=== PATIENT | male | born 1970 | race American Indian/Alaskan Native ===

== ENCOUNTER 2017-06-02 11:56 | Emergency (ER) | payer MEDICAID, OTHER ==
[2017-06-02] MEDS ORDERED: Clindamycin HCl 150 MG Cap PO ONE ×2 (11:57→12:54)
[2017-06-02] MEDS ORDERED: Clindamycin HCl 150 MG Cap ONE (13:16)
--- NOTE | 2017-06-02 14:43 | EDM.PDOC ---
Scribed by Clary Vega 06/02/17 1258 for Consuelo Coleman NP ED HPI GENERAL MEDICAL PROBLEM - General Chief Complaint: ENT Problem Stated Complaint: ABCESS TOOTH [id number] Time Seen by Provider: 06/02/17 12:35 Source of Information: Reports: Patient, RN, RN Notes Reviewed History Limitations: Reports: No Limitations - History of Present Illness INITIAL COMMENTS - FREE TEXT/NARRATIVE: Patient presents to ER with complaint of left facial pain and swelling beginning a couple of days ago. Swelling and pain constantly worsening. Onset: Gradual Duration: Getting Worse Location: Reports: Face Quality: Reports: Ache Severity: Moderate Improves with: Reports: None Worsens with: Reports: None Associated Symptoms: Reports: No Other Symptoms Upper Gums Pain Score (Numeric/FACES): 6 - Related Data Allergies Allergy/AdvReac Type Severity Reaction Status Date / Time erythromycin base Allergy Hives Verified 06/02/17 12:05 naproxen Allergy Hives Verified 06/02/17 12:05 Penicillins Allergy rash and Verified 06/02/17 12:05 swelling Home Meds: Home Meds ARIPiprazole [Abilify] 1 tab PO BEDTIME 06/02/17 [History] Cholecalciferol (Vitamin D3) [Vitamin D3] 2 tab PO DAILY 06/02/17 [History] Gabapentin [Neurontin] 200 mg PO BID 06/02/17 [History] Lisinopril 1 tab PO DAILY 06/02/17 [History] QUEtiapine Fumarate [Seroquel Xr] 1 tab PO BEDTIME 06/02/17 [History] metFORMIN HCl [Metformin HCl] 1 tab PO BID 06/02/17 [History] Past Medical History HEENT History: Reports: None Cardiovascular History: Reports: Hypertension Respiratory History: Reports: None Gastrointestinal History: Reports: Chronic Diarrhea, Hepatitis, Other (See Below ) Other Gastrointestinal History: hepatitis C Genitourinary History: Reports: None Musculoskeletal History: Reports: Arthritis, Back Pain, Chronic Neurological History: Reports: Concussion Psychiatric History: Reports: Anxiety, Mood Swings Endocrine/Metabolic History: Reports: Diabetes, Type II, Vitamin D Deficiency Hematologic History: Reports: None Immunologic History: Reports: None Oncologic (Cancer) History: Reports: None Dermatologic History: Reports: None - Past Surgical History HEENT Surgical History: Reports: None Cardiovascular Surgical History: Reports: None Respiratory Surgical History: Reports: None GI Surgical History: Reports: None Neurological Surgical History: Reports: None Musculoskeletal Surgical History: Reports: None, Hip Replacement Other Musculoskeletal Surgeries/Procedures:: Right hip replacement Social & Family History - Family History Family Medical History: Noncontributory - Tobacco Use Smoking Status *Q: Current Every Day Smoker Years of Tobacco use: 20 Packs/Tins Daily: 0.5 - Caffeine Use Caffeine Use: Reports: Tea - Recreational Drug Use Recreational Drug Use: No ED ROS ENT - Review of Systems Review Of Systems: ROS reveals no pertinent complaints other than HPI. ED EXAM, ENT - Physical Exam Exam: See Below Exam Limited By: No Limitations General Appearance: Alert, WD/WN, No Apparent Distress Eye Exam: Bilateral Eye: Normal Inspection Ears: Normal External Exam, Normal Canal, Hearing Grossly Normal, Normal TMs Nose: Normal Inspection, Normal Mucousa, No Blood Mouth/Throat: Normal Inspection, Normal Gums, Normal Lips, Normal Oropharynx, Normal Teeth Head: Facial Swelling (left) Neck: Normal Inspection, Supple, Non-Tender, Full Range of Motion Respiratory/Chest: No Respiratory Distress, Lungs Clear, Normal Breath Sounds, No Accessory Muscle Use, Chest Non-Tender Cardiovascular: Normal Peripheral Pulses, Regular Rate, Rhythm, No Edema, No Gallop, No JVD, No Murmur, No Rub GI/Abdominal: Normal Bowel Sounds, Soft, Non-Tender, No Organomegaly, No Distention, No Abnormal Bruit, No Mass (Male) Exam: Deferred Rectal (Males) Exam: Deferred Back: Normal Inspection, Full Range of Motion Extremities: Normal Inspection, Normal Range of Motion, Non-Tender, No Pedal Edema, Normal Capillary Refill Neurological: Alert, Oriented, CN II-XII Intact, Normal Cognition, Normal Gait, Normal Reflexes, No Motor/Sensory Deficits Psychiatric: Flat Affect Skin: Warm, Dry, Intact, Normal Color, No Rash Lymphatic: No Adenopathy Course - Vital Signs Last Recorded V/S: Last Vital Signs Temp 98.2 F 06/02/17 12:02 Pulse 88 06/02/17 12:02 Resp 16 06/02/17 12:02 BP 114/71 06/02/17 12:02 Pulse Ox 100 06/02/17 12:02 - Orders/Labs/Meds Meds: Medications Discontinued Medications Generic Name Dose Route Start Last Admin Trade Name Freq PRN Reason Stop Dose Admin Clindamycin HCl 600 mg 06/02/17 12:54 Cleocin PO 06/02/17 12:55 ONETIME ONE Departure - Departure Time of Disposition: 12:58 Disposition: Home, Self-Care 01 Condition: Fair Clinical Impression: Dental infection - Discharge Information Instructions: Dental Abscess, [id number] Forms: ED Department Discharge Additional Instructions: RX: Clindamycin Follow up with your dentist on Saturday Tylenol and/or ibuprofen as directed for pain May ice the area as tolerated. I have read and agree with the documentation that has been completed regarding this visit. By signing this record, I attest that the documentation was completed in my physical presence and is an accurate record of the encounter.
== END 2017-06-02 13:33 | disposition home or self-care (01) ==
LOC: DL.ED 11:56
DX: K04.7 Periapical abscess without sinus (principal); I10 Essential (primary) hypertension; E11.9 Type 2 diabetes mellitus without complications; F17.210 Nicotine dependence, cigarettes, uncomplicated; Z88.1 Allergy status to other antibiotic agents; Z88.6 Allergy status to analgesic agent; Z88.0 Allergy status to penicillin; Z79.84 Long term (current) use of oral hypoglycemic drugs; Z79.899 Other long term (current) drug therapy
CPT/HCPCS: 99282; A9270

== ENCOUNTER 2018-06-23 11:37 | Emergency (ER) | payer SELFPAY ==
--- NOTE | 2018-06-23 12:30 | EDM.PDOC ---
ED HPI GENERAL MEDICAL PROBLEM - General Chief Complaint: Skin Complaint Stated Complaint: ALLERGIC REACTION TO METAL FROM BELT [id number] Time Seen by Provider: 06/23/18 12:25 Source of Information: Reports: Patient History Limitations: Reports: No Limitations - History of Present Illness INITIAL COMMENTS - FREE TEXT/NARRATIVE: This 48 yo male patient reports to the ED due to a draining area on his lower abdomen. The patient reports he is allergic to the metals on his jeans as well as on his belt. The patient reports noticing the area about 1 week ago, but the area has had increased drainage and increased pain during the weekend. Onset: Unknown/Unsure Duration: Constant, Getting Worse Location: Reports: Abdomen (lower abdomen abscess) Quality: Reports: Ache, Dull Severity: Moderate Improves with: Reports: None Worsens with: Reports: None Context: Reports: Other Associated Symptoms: Reports: No Other Symptoms - Related Data Allergies Allergy/AdvReac Type Severity Reaction Status Date / Time erythromycin base Allergy Hives Verified 06/23/18 11:47 naproxen Allergy Hives Verified 06/23/18 11:47 Penicillins Allergy rash and Verified 06/23/18 11:47 swelling Home Meds: Home Meds Gabapentin [Neurontin] 200 mg PO BID 06/02/17 [History] Lisinopril 1 tab PO DAILY 06/02/17 [History] metFORMIN HCl [Metformin HCl] 1 tab PO BID 06/02/17 [History] Past Medical History HEENT History: Reports: None Cardiovascular History: Reports: Hypertension Respiratory History: Reports: None Gastrointestinal History: Reports: Chronic Diarrhea, Hepatitis, Other (See Below ) Other Gastrointestinal History: hepatitis C Genitourinary History: Reports: None Musculoskeletal History: Reports: Arthritis, Back Pain, Chronic Neurological History: Reports: Concussion Psychiatric History: Reports: Anxiety, Mood Swings Endocrine/Metabolic History: Reports: Diabetes, Type II, Vitamin D Deficiency Hematologic History: Reports: None Immunologic History: Reports: None Oncologic (Cancer) History: Reports: None Dermatologic History: Reports: None - Infectious Disease History Infectious Disease History: Reports: Hepatitis C - Past Surgical History Head Surgeries/Procedures: Reports: None HEENT Surgical History: Reports: None Cardiovascular Surgical History: Reports: None Respiratory Surgical History: Reports: None GI Surgical History: Reports: None Neurological Surgical History: Reports: None Musculoskeletal Surgical History: Reports: None, Hip Replacement Other Musculoskeletal Surgeries/Procedures:: Right hip replacement Social & Family History - Family History Family Medical History: Noncontributory - Tobacco Use Smoking Status *Q: Current Some Day Smoker Years of Tobacco use: 20 Packs/Tins Daily: 1 - Caffeine Use Caffeine Use: Reports: Soda - Recreational Drug Use Recreational Drug Use: Yes Drug Use in Last 12 Months: Yes Recreational Drug Type: Reports: Marijuana/Hashish, Methamphetamine Recreational Drug Use Frequency: Socially ED ROS GENERAL - Review of Systems Review Of Systems: ROS reveals no pertinent complaints other than HPI. ED EXAM, SKIN/RASH Exam: See Below Exam Limited By: No Limitations General Appearance: Alert, WD/WN, Moderate Distress Eye Exam: Bilateral Eye: EOMI, Normal Inspection, PERRL Ears: Normal External Exam, Normal Canal, Hearing Grossly Normal, Normal TMs Nose: Normal Inspection, Normal Mucosa, No Blood Throat/Mouth: Normal Inspection, Normal Lips, Normal Teeth, Normal Gums, Normal Oropharynx, Normal Voice, No Airway Compromise Head: Atraumatic, Normocephalic Neck: Normal Inspection, Supple, Non-Tender, Full Range of Motion Respiratory/Chest: No Respiratory Distress, Lungs Clear, Normal Breath Sounds, No Accessory Muscle Use, Chest Non-Tender Cardiovascular: Normal Peripheral Pulses, Regular Rate, Rhythm, No Edema, No Gallop, No JVD, No Murmur, No Rub GI/Abdominal: Normal Bowel Sounds, Soft, Tender (over area of abscess (lower abdomen)) (Male) Exam: Deferred Rectal (Males) Exam: Deferred Back Exam: Normal Inspection, Full Range of Motion, NT Extremities: Normal Inspection, Normal Range of Motion, Non-Tender, No Pedal Edema, Normal Capillary Refill Neurological: Alert, Oriented, CN II-XII Intact, Normal Cognition, Normal Gait, Normal Reflexes, No Motor/Sensory Deficits Psychiatric: Normal Affect, Normal Mood Skin: Wound/Incision (lower abdomen) Location, Skin: Abdomen Characteristics: Erythematous Associated features: Warmth, Tenderness, Swelling, Inflammation, Weeping. No: Induration Lymphatic: No Adenopathy Course - Vital Signs Last Recorded V/S: Last Vital Signs Temp 36.7 C 06/23/18 11:49 Pulse 92 06/23/18 11:49 Resp 16 06/23/18 11:49 BP 126/76 06/23/18 11:49 Pulse Ox 99 06/23/18 11:49 Departure - Departure Time of Disposition: 12:28 Disposition: Home, Self-Care 01 Condition: Fair Clinical Impression: Abscess - Discharge Information *PRESCRIPTION DRUG MONITORING PROGRAM REVIEWED*: Not Applicable *COPY OF PRESCRIPTION DRUG MONITORING REPORT IN PATIENT JOSE JUAN: Not Applicable Instructions: Skin Abscess, Klap-[id number] Forms: ED Department Discharge Care Plan Goals: The patient was advised of the examination results during the visit. Since the patient's abscess was open and draining, the patient was discharged with a script for 1) Bactrim DS #20 to take 1 by mouth 2 times per day for 10 days and 2) Keflex (500 mg) #30 to take 1 by mouth 3 times per day for 10 days. If the patient has any additional symptoms or concerns, the patient should either return to the emergency department or visit his primary care facility.
== END 2018-06-23 12:33 | disposition home or self-care (01) ==
LOC: DL.ED 11:37
CPT/HCPCS: 99283

== ENCOUNTER 2018-09-03 08:49 | Emergency (ER) | payer MEDICAID ==
[2018-09-03] MEDS ORDERED: Tetracaine HCl/PF 0.5% 4 ML Bottle EYEBOTH ONE (09:01)
[2018-09-03] MEDS ORDERED: Fluorescein 1 MG Ophth Strip EYEBOTH ONE ×2 (09:02→09:43)
--- NOTE | 2018-09-03 09:13 | EDM.PDOC ---
ED HPI GENERAL MEDICAL PROBLEM - General Chief Complaint: Eye Problems Stated Complaint: OIL AND DIRT IN EYES Time Seen by Provider: 09/03/18 08:55 Source of Information: Reports: Patient History Limitations: Reports: No Limitations - History of Present Illness INITIAL COMMENTS - FREE TEXT/NARRATIVE: Patient presents to ER with CC of feeling like there is something in his eyes. Patient states that he was changing oil on his truck last night when he felt something "drop into his eyes". Patient states that he experienced this sensation in both eyes, however left is worse than right. patient states that he flushed out both of his eyes several times throughout the night, but was unable to get rid of the sensation. Patient reports that he was wearing safety goggles at the time that this happened. Patient denies any vision changes or blurred vision. Patient is unsure of when his last tetanus booster was. Onset: Other (09/02/18) Location: Reports: Other (bilateral eyes) Associated Symptoms: Reports: No Other Symptoms Treatments WOUND CARE TECHNICIAN: Reports: Other (see below) (eye flush, bilateral) - Related Data Allergies Allergy/AdvReac Type Severity Reaction Status Date / Time erythromycin base Allergy Hives Verified 06/23/18 11:47 naproxen Allergy Hives Verified 06/23/18 11:47 Penicillins Allergy rash and Verified 06/23/18 11:47 swelling Home Meds: Home Meds Gabapentin [Neurontin] 200 mg PO BID 06/02/17 [History] Lisinopril 1 tab PO DAILY 06/02/17 [History] metFORMIN HCl [Metformin HCl] 1 tab PO BID 06/02/17 [History] Past Medical History HEENT History: Reports: None Cardiovascular History: Reports: Hypertension Respiratory History: Reports: None Gastrointestinal History: Reports: Chronic Diarrhea, Hepatitis, Other (See Below ) Other Gastrointestinal History: hepatitis C Genitourinary History: Reports: None Musculoskeletal History: Reports: Arthritis, Back Pain, Chronic Neurological History: Reports: Concussion Psychiatric History: Reports: Anxiety, Mood Swings Endocrine/Metabolic History: Reports: Diabetes, Type II, Vitamin D Deficiency Hematologic History: Reports: None Immunologic History: Reports: None Oncologic (Cancer) History: Reports: None Dermatologic History: Reports: None - Infectious Disease History Infectious Disease History: Reports: Hepatitis C - Past Surgical History Head Surgeries/Procedures: Reports: None HEENT Surgical History: Reports: None Cardiovascular Surgical History: Reports: None Respiratory Surgical History: Reports: None GI Surgical History: Reports: None Neurological Surgical History: Reports: None Musculoskeletal Surgical History: Reports: None, Hip Replacement Other Musculoskeletal Surgeries/Procedures:: Right hip replacement Social & Family History - Family History Family Medical History: Noncontributory - Caffeine Use Caffeine Use: Reports: Soda ED ROS GENERAL - Review of Systems Review Of Systems: ROS reveals no pertinent complaints other than HPI. ED EXAM GENERAL W FULL EYE - Physical Exam Exam: See Below Exam Limited By: No Limitations General Appearance: Alert, WD/WN, No Apparent Distress Eye Exam: Bilateral Eye: Foreign Body (unable to visualize any foreign body), Normal Inspection (irritation noted to bilateral eyes, left worse than right) Visual Acuity (R) 20/: 20 Visual Acuity (L) 20/: 25 With Correction: No Eyelids: Bilateral: Normal Appearance Conjunctiva & Sclera: Right: Other (conjuntive abrasion ) Cornea Exam: Left: Corneal Abrasion Extraocular Movements: Bilateral: Intact Pupils: Normal Accommodation Pupillary Size: Bilateral: 3 mm Pupillary Reaction: Bilateral: Brisk Ears: Normal External Exam, Normal Canal, Hearing Grossly Normal, Normal TMs Nose: Normal Inspection, Normal Mucosa, No Blood Throat/Mouth: Normal Inspection, Normal Lips, Normal Teeth, Normal Gums, Normal Oropharynx, Normal Voice, No Airway Compromise Head: Atraumatic, Normocephalic Neck: Normal Inspection, Supple, Non-Tender, Full Range of Motion Respiratory/Chest: No Respiratory Distress, Lungs Clear, Normal Breath Sounds, No Accessory Muscle Use, Chest Non-Tender Cardiovascular: Normal Peripheral Pulses, Regular Rate, Rhythm, No Edema, No Gallop, No JVD, No Murmur, No Rub Neurological: Alert, Oriented, CN II-XII Intact, Normal Cognition, Normal Gait, Normal Reflexes, No Motor/Sensory Deficits Psychiatric: Normal Affect, Normal Mood Skin Exam: Warm, Dry, Intact, Normal Color, No Rash ED EYE w/ Add Procedure - Eye Procedure Alcaine Drops Administered: Yes Eye FB Removal: Other (no foreign body present) Antibiotic Oinment/Drps Admin: Both Eyes Course - Orders/Labs/Meds Orders: Active Orders 24 hr Category Date Time Status Vaccines to be Administered [RC] PER UNIT ROUTINE Care 09/03/18 09:38 Active Meds: Medications Discontinued Medications Generic Name Dose Route Start Last Admin Trade Name Rox PRN Reason Stop Dose Admin Diphtheria/Tetanus/Acell Pertussis 0.5 ml 09/03/18 09:38 Adacel IM 09/03/18 09:39 .ONCE ONE Fluorescein Sodium 1 mg 09/03/18 09:02 09/03/18 09:42 Ful-Vi EYEBOTH 09/03/18 09:03 1 mg ONETIME ONE Administration Fluorescein Sodium Confirm 09/03/18 09:33 09/03/18 09:44 Ful-Vi Administered 09/03/18 09:34 Not Given Dose 1 mg .ROUTE .STK-MED ONE Fluorescein Sodium 1 mg 09/03/18 09:43 Ful-Vi EYEBOTH 09/03/18 09:44 ONETIME ONE Gentamicin Sulfate 1 ml 09/03/18 09:38 Garamycin 0.3% Ophth Soln EYEBOTH 09/03/18 09:39 ONETIME ONE Tetracaine HCl 1 ml 09/03/18 09:01 09/03/18 09:42 Tetracaine 0.5% Steri-Unit Kinga EYEBOTH 09/03/18 09:02 1 drop ONETIME ONE Administration Departure - Departure Time of Disposition: 09:39 Disposition: Home, Self-Care 01 Condition: Good Clinical Impression: Corneal abrasion Qualifiers: Encounter type: initial encounter Laterality: left Qualified Code(s): S05.02XA - Injury of conjunctiva and corneal abrasion without foreign body, left eye, initial encounter Abrasion of conjunctiva, right Qualifiers: Encounter type: initial encounter Qualified Code(s): S05.01XA - Injury of conjunctiva and corneal abrasion without foreign body, right eye, initial encounter - Discharge Information *PRESCRIPTION DRUG MONITORING PROGRAM REVIEWED*: Not Applicable *COPY OF PRESCRIPTION DRUG MONITORING REPORT IN PATIENT JOSE JUAN: Not Applicable Instructions: Corneal Abrasion Forms: ED Department Discharge Additional Instructions: Rx: Gentamycin eye drops 1 drop in each eye, 4x per day, for 5 days total. Wear sunglasses for the next few days when outside to help protect eyes. Follow up in clinic with any questions/concerns. - My Orders Last 24 Hours: My Active Orders 09/03/18 09:38 Vaccines to be Administered [RC] PER UNIT ROUTINE - Assessment/Plan Last 24 Hours: My Active Orders 09/03/18 09:38 Vaccines to be Administered [RC] PER UNIT ROUTINE
[2018-09-03] MEDS ORDERED: Fluorescein 1 MG Ophth Strip ONE (09:33)
[2018-09-03] MEDS ORDERED: Diphtheria,Pertussis(Acell),Tetanus Vaccine 0.5 ML SDV IM ONE (09:38)
[2018-09-03] MEDS ORDERED: Gentamicin 0.3% Ophth Soln 5 ML Bottle EYEBOTH ONE (09:38)
== END 2018-09-03 09:52 | disposition home or self-care (01) ==
LOC: DL.ED 08:49
DX: S05.01XA Injury of conjunctiva and corneal abrasion without foreign body, right eye, initial encounter (principal); Z23 Encounter for immunization; I10 Essential (primary) hypertension; F41.9 Anxiety disorder, unspecified; E11.9 Type 2 diabetes mellitus without complications; Z79.84 Long term (current) use of oral hypoglycemic drugs; Z79.899 Other long term (current) drug therapy; Z88.1 Allergy status to other antibiotic agents; Z88.0 Allergy status to penicillin; Z88.8 Allergy status to other drugs, medicaments and biological substances; X58.XXXA Exposure to other specified factors, initial encounter
CPT/HCPCS: 90471; 90715; 99283; A9270

== ENCOUNTER 2019-05-21 15:16 | Emergency (ER) | payer MEDICAID ==
[2019-05-21] MEDS ORDERED: Doxycycline 100 MG Cap PO ONE (16:20)
--- NOTE | 2019-05-21 16:27 | EDM.PDOC ---
Scribed by Clary Vega 05/21/19 4821 for Annmarie Brady PA-C ED HPI GENERAL MEDICAL PROBLEM - General Chief Complaint: Upper Extremity Injury/Pain Stated Complaint: SWELLING IN RIGHT ARM. Time Seen by Provider: 05/21/19 16:05 Source of Information: Reports: Patient, RN, RN Notes Reviewed History Limitations: Reports: No Limitations - History of Present Illness INITIAL COMMENTS - FREE TEXT/NARRATIVE: Patient presents to ER with a red swollen right arm. He states he took meth 2 weeks ago while being drunk. Since then the arm has become swollen and red. He has had body aches today. Onset: Gradual Duration: Getting Worse Location: Reports: Upper Extremity, Right Quality: Reports: Ache Severity: Moderate Improves with: Reports: None Worsens with: Reports: None Associated Symptoms: Reports: No Other Symptoms Right Arm Pain Score (Numeric/FACES): 4 - Related Data Allergies Allergy/AdvReac Type Severity Reaction Status Date / Time erythromycin base Allergy Hives Verified 05/21/19 15:43 naproxen Allergy Hives Verified 05/21/19 15:43 Penicillins Allergy rash and Verified 05/21/19 15:43 swelling Home Meds: Home Meds Lisinopril 1 tab PO DAILY 06/02/17 [History] metFORMIN HCl [Metformin HCl] 1 tab PO BID 06/02/17 [History] Past Medical History HEENT History: Reports: None Cardiovascular History: Reports: Hypertension Respiratory History: Reports: None Gastrointestinal History: Reports: Chronic Diarrhea, Hepatitis, Other (See Below ) Other Gastrointestinal History: hepatitis C Genitourinary History: Reports: None Musculoskeletal History: Reports: Arthritis, Back Pain, Chronic Neurological History: Reports: Concussion Psychiatric History: Reports: Anxiety, Mood Swings Endocrine/Metabolic History: Reports: Diabetes, Type II, Vitamin D Deficiency Hematologic History: Reports: None Immunologic History: Reports: None Oncologic (Cancer) History: Reports: None Dermatologic History: Reports: None - Infectious Disease History Infectious Disease History: Reports: Hepatitis C - Past Surgical History Head Surgeries/Procedures: Reports: None HEENT Surgical History: Reports: None Cardiovascular Surgical History: Reports: None Respiratory Surgical History: Reports: None GI Surgical History: Reports: None Neurological Surgical History: Reports: None Musculoskeletal Surgical History: Reports: None, Hip Replacement Other Musculoskeletal Surgeries/Procedures:: Right hip replacement Social & Family History - Family History Family Medical History: Noncontributory - Tobacco Use Smoking Status *Q: Current Every Day Smoker Years of Tobacco use: 27 Packs/Tins Daily: 0.5 Second Hand Smoke Exposure: Yes - Caffeine Use Caffeine Use: Reports: Coffee - Recreational Drug Use Recreational Drug Use: Yes Recreational Drug Type: Reports: Methamphetamine Review of Systems - Review of Systems Review Of Systems: Comprehensive ROS is negative, except as noted in HPI. ED EXAM, GENERAL - Physical Exam Exam: See Below Exam Limited By: No Limitations General Appearance: Alert, WD/WN, No Apparent Distress Eye Exam: Bilateral Eye: EOMI, Normal Inspection, PERRL Ears: Normal External Exam, Normal Canal, Hearing Grossly Normal, Normal TMs Nose: Normal Inspection, Normal Mucosa, No Blood Throat/Mouth: Normal Inspection, Normal Lips, Normal Teeth, Normal Gums, Normal Oropharynx, Normal Voice, No Airway Compromise Head: Atraumatic, Normocephalic Neck: Normal Inspection, Supple, Non-Tender, Full Range of Motion Respiratory/Chest: No Respiratory Distress, Lungs Clear, Normal Breath Sounds, No Accessory Muscle Use, Chest Non-Tender Cardiovascular: Normal Peripheral Pulses, Regular Rate, Rhythm, No Edema, No Gallop, No JVD, No Murmur, No Rub GI/Abdominal: Normal Bowel Sounds, Soft, Non-Tender, No Organomegaly, No Distention, No Abnormal Bruit, No Mass (Male) Exam: Deferred Rectal (Males) Exam: Deferred Back Exam: Normal Inspection, Full Range of Motion, NT Neurological: Alert, Oriented, CN II-XII Intact, Normal Cognition, Normal Gait, Normal Reflexes, No Motor/Sensory Deficits Psychiatric: Normal Affect, Normal Mood Skin Exam: Warm, Dry, Intact, No Rash, Erythema (small streak 2.5cm mid upper innerarm 4mm width of streak, 1cm firm central area at injection site, 2x3 irregular light redness right inner forearm) Course - Vital Signs Last Recorded V/S: Last Vital Signs Temp 98.4 F 05/21/19 15:39 Pulse 114 H 05/21/19 15:39 Resp 16 05/21/19 15:39 BP 114/74 05/21/19 15:39 Pulse Ox 100 05/21/19 15:39 - Orders/Labs/Meds Orders: Active Orders 24 hr Category Date Time Status COMPREHENSIVE METABOLIC PN,CMP [CHEM] Stat Lab 05/21/19 16:01 Received CULTURE BLOOD [BC] Stat Lab 05/21/19 15:50 Ordered CULTURE BLOOD [BC] Stat Lab 05/21/19 16:01 Received LACTIC ACID [CHEM] Stat Lab 05/21/19 16:01 Received Blood Culture x2 Reflex Set [OM.PC] Stat Oth 05/21/19 15:49 Ordered Labs: Laboratory Tests 05/21/19 Range/Units 16:01 WBC 8.9 (5.0-10.0) 10^3/uL RBC 4.47 L (4.6-6.2) 10^6/uL Hgb 15.8 (14.0-18.0) g/dL Hct 43.0 (40.0-54.0) % MCV 96.2 (80-100) fL MCH 35.3 H (27.0-34.0) pg MCHC 36.7 H (33.0-35.0) g/dL Plt Count 237 (150-450) 10^3/uL Neut % (Auto) 66.8 (42.2-75.2) % Lymph % (Auto) 17.9 L (20.5-50.1) % [place] % (Auto) 13.3 H (2-8) % Eos % (Auto) 1.3 (1.0-3.0) % Baso % (Auto) 0.7 (0.0-1.0) % Meds: Medications Discontinued Medications Generic Name Dose Route Start Last Admin Trade Name Freq PRN Reason Stop Dose Admin Doxycycline Hyclate 100 mg 05/21/19 16:20 Vibramycin PO 05/21/19 16:21 ONETIME ONE Departure - Departure Time of Disposition: 16:17 Disposition: Home, Self-Care 01 Condition: Good Clinical Impression: IV drug user Cellulitis Qualifiers: Site of cellulitis: extremity Site of cellulitis of extremity: upper extremity Laterality: right Qualified Code(s): L03.113 - Cellulitis of right upper limb - Discharge Information *PRESCRIPTION DRUG MONITORING PROGRAM REVIEWED*: No *COPY OF PRESCRIPTION DRUG MONITORING REPORT IN PATIENT JOSE JUAN: No Instructions: Cellulitis, Adult, Fuyc-[id number] Forms: ED Department Discharge Additional Instructions: RX: Doxycycline 100mg twice daily for 10 days. Warm pack the arm. Followup in clinic next week. Tylenol or Ibuprofen for discomfort. Sepsis Event Note - Evaluation Sepsis Screening Result: No Definite Risk - Focused Exam Vital Signs: Vital Signs Temp Pulse Resp BP Pulse Ox 05/21/19 15:39 98.4 F 114 H 16 114/74 100 Date Exam was Performed: 05/21/19 Time Exam was Performed: 16:22 - My Orders Last 24 Hours: My Active Orders 05/21/19 15:49 Blood Culture x2 Reflex Set [OM.PC] Stat 05/21/19 15:50 CULTURE BLOOD [BC] Stat 05/21/19 16:01 COMPREHENSIVE METABOLIC PN,CMP [CHEM] Stat CULTURE BLOOD [BC] Stat LACTIC ACID [CHEM] Stat - Assessment/Plan Last 24 Hours: My Active Orders 05/21/19 15:49 Blood Culture x2 Reflex Set [OM.PC] Stat 05/21/19 15:50 CULTURE BLOOD [BC] Stat 05/21/19 16:01 COMPREHENSIVE METABOLIC PN,CMP [CHEM] Stat CULTURE BLOOD [BC] Stat LACTIC ACID [CHEM] Stat I have read and agree with the documentation that has been completed regarding this visit. By signing this record, I attest that the documentation was completed in my physical presence and is an accurate record of the encounter.
[2019-05-21 16:35] LABS: ANION GAP 10.2 mEq/L (7-13); CHLORIDE,CL 92 mmol/L (98-107); SODIUM,NA 127 mmol/L (136-145)
== END 2019-05-21 16:27 | disposition home or self-care (01) ==
LOC: DL.ED 15:16
DX: L03.113 Cellulitis of right upper limb (principal); F19.90 Other psychoactive substance use, unspecified, uncomplicated; I10 Essential (primary) hypertension; E11.9 Type 2 diabetes mellitus without complications; Z79.84 Long term (current) use of oral hypoglycemic drugs; Z79.899 Other long term (current) drug therapy; F17.210 Nicotine dependence, cigarettes, uncomplicated; Z88.0 Allergy status to penicillin; Z88.1 Allergy status to other antibiotic agents; Z88.8 Allergy status to other drugs, medicaments and biological substances
CPT/HCPCS: 36415; 80053; 83605; 85025; 87040; 99283; A9270-GY

== ENCOUNTER 2019-08-15 09:01 | Emergency (ER) | payer MEDICAID ==
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
== END 2019-08-15 10:17 | disposition home or self-care (01) ==
LOC: DL.ED 09:01
DX: F41.9 Anxiety disorder, unspecified (principal); I10 Essential (primary) hypertension; E11.9 Type 2 diabetes mellitus without complications; F17.210 Nicotine dependence, cigarettes, uncomplicated; Z88.1 Allergy status to other antibiotic agents; Z88.8 Allergy status to other drugs, medicaments and biological substances; Z88.0 Allergy status to penicillin; Z79.84 Long term (current) use of oral hypoglycemic drugs; Z79.899 Other long term (current) drug therapy
CPT/HCPCS: 99283

== ENCOUNTER 2020-04-19 10:54 | Emergency (ER) | payer MEDICAID ==
--- NOTE | 2020-04-19 11:16 | EDM.PDOC ---
ED HPI GENERAL MEDICAL PROBLEM - General Chief Complaint: ENT Problem Stated Complaint: IRRATATION ON FACE, POSSIBLY FROM TOOTH Time Seen by Provider: 04/19/20 11:10 Source of Information: Reports: Patient, RN, RN Notes Reviewed History Limitations: Reports: No Limitations - History of Present Illness INITIAL COMMENTS - FREE TEXT/NARRATIVE: Patient presents to the ED with complaints pain to his right maxilla and mass to right cheek. The patient reports he first noted pain to his 5th tooth about one week ago after he ate a carrot; he felt as though he broke this tooth. He s tates he did not receive medical evaluation following this event. He notes he first noted a small mass to his right cheek forming three days later. He presents today as the pain to his tooth has worsened and the mass on his right cheek has grown and is more painful. The patient denies fever, shaking chills, cough, sore throat, difficulty breathing, palpitations, nausea, or loose stools. He does attest to pain to the right maxilla with mastication. He reports smoking 1/2 pack of cigarettes per day. He states he drinks regularly with his last drink occurring about four days ago. He denies recent recreational drug use but notes he used to smoke cannabis and methamphetamines. - Related Data Allergies Allergy/AdvReac Type Severity Reaction Status Date / Time erythromycin base Allergy Hives Verified 04/19/20 11:02 naproxen Allergy Hives Verified 04/19/20 11:02 Penicillins Allergy rash and Verified 04/19/20 11:02 swelling Home Meds: Home Meds Lisinopril 1 tab PO DAILY 06/02/17 [History] metFORMIN HCl [Metformin HCl] 1 tab PO BID 06/02/17 [History] QUEtiapine [SEROquel] 04/19/20 [History] Past Medical History HEENT History: Reports: None Cardiovascular History: Reports: Hypertension Respiratory History: Reports: None Gastrointestinal History: Reports: Chronic Diarrhea, Hepatitis, Other (See Below) Other Gastrointestinal History: hepatitis C Genitourinary History: Reports: None Musculoskeletal History: Reports: Arthritis, Back Pain, Chronic Neurological History: Reports: Concussion Psychiatric History: Reports: Addiction, Anxiety, Mood Swings Endocrine/Metabolic History: Reports: Diabetes, Type II, Vitamin D Deficiency Hematologic History: Reports: None Immunologic History: Reports: None Oncologic (Cancer) History: Reports: None Dermatologic History: Reports: None - Infectious Disease History Infectious Disease History: Reports: Hepatitis C - Past Surgical History Head Surgeries/Procedures: Reports: None HEENT Surgical History: Reports: None Cardiovascular Surgical History: Reports: None Respiratory Surgical History: Reports: None GI Surgical History: Reports: None Neurological Surgical History: Reports: None Musculoskeletal Surgical History: Reports: None, Hip Replacement Other Musculoskeletal Surgeries/Procedures:: Right hip replacement Social & Family History - Family History Family Medical History: No Pertinent Family History - Tobacco Use Tobacco Use Status *Q: Current Every Day Tobacco User Years of Tobacco use: 40 Packs/Tins Daily: 0.5 - Caffeine Use Caffeine Use: Reports: Coffee, Soda - Recreational Drug Use Recreational Drug Use: Yes ED ROS ENT - Review of Systems Review Of Systems: Comprehensive ROS is negative, except as noted in HPI. ED EXAM, ENT - Physical Exam Exam: See Below Exam Limited By: No Limitations General Appearance: Alert, No Apparent Distress Eye Exam: Bilateral Eye: EOMI, PERRL (3mm), Other (Scleral icterus) Ears: Normal External Exam, Normal Canal, Hearing Grossly Normal, Normal TMs. No: TM Bulging, TM Dullness, TM Erythema Nose: Normal Inspection, Normal Mucousa, No Blood Mouth/Throat: Dental Abcess (Superior to fifth tooth), Dental Pain, Dental Tenderness, Gum Swelling. No: Dental Trauma, Hoarse Voice, Lip Swelling, Muffled Voice, Oral Ulcers, Throat Pain, Throat Swelling, Tongue Swelling, Tonsillar Swelling Head: Atraumatic, Normocephalic Neck: Normal Inspection, Supple, Non-Tender, Full Range of Motion. No: Lymphadenopathy (L), Lymphadenopathy (R) Respiratory/Chest: No Respiratory Distress, Lungs Clear, No Accessory Muscle Use, Chest Non-Tender, Decreased Breath Sounds Cardiovascular: Normal Peripheral Pulses, Regular Rate, Rhythm, No Edema, No Gallop, No JVD, No Murmur, No Rub, Tachycardia Neurological: Alert, Oriented, CN II-XII Intact, Normal Cognition, Normal Gait, No Motor/Sensory Deficits Psychiatric: Normal Affect, Normal Mood Skin: Warm, Dry, Erythema (To wound on nasolabial fold), Increased Warmth (To wound on right nasolabial fold), Wound/Incision (1cm x 1cm closed abscess to right mid nasolabial fold; Clean and dry;). No: Ecchymosis, Jaundice, Mottled, Pallor, Petechiae Course - Vital Signs Last Recorded V/S: Last Vital Signs Temp 97.7 F 04/19/20 11:04 Pulse 103 H 04/19/20 11:04 Resp 16 04/19/20 11:04 BP 149/97 H 04/19/20 11:04 Pulse Ox 100 04/19/20 11:04 - Re-Assessments/Exams Free Text/Narrative Re-Assessment/Exam: 04/19/20 Patient states he has not been evaluated by a dentist in over a year and has not been examined since his tooth broke. As swelling to area is not significant and there is signs of airway compromise, will avoid CT scan. Will treat dental abscess with Clindamycin 300mg QID. Patient instructed to follow up with dental home in 1-3 days. Patient verbalized understanding and agreement with the plan of care. Departure - Departure Time of Disposition: 11:10 Disposition: Home, Self-Care 01 Condition: Good Clinical Impression: Dental abscess, Dental caries - Discharge Information *PRESCRIPTION DRUG MONITORING PROGRAM REVIEWED*: Not Applicable *COPY OF PRESCRIPTION DRUG MONITORING REPORT IN PATIENT JOSE JUAN: Not Applicable Instructions: Dental Abscess, [id number] Referrals: PCP,None [Primary Care Provider] - Forms: ED Department Discharge Additional Instructions: Rx: Clindamycin 1.) Follow up with your dentist in one to two days. 2.) Take all of your antibiotic until gone, unless instructed otherwise by dentist. 3.) You may take ibuprofen (Advil/Motrin) 40mg every six hours, as pain and swelling persist. You may take acetaminophen (Tylenol) 650mg every six hours, as pain persists. 4.) You may apply a cold compress to your face, as swelling and pain persist. Sepsis Event Note (ED) - Evaluation Sepsis Screening Result: No Definite Risk - Focused Exam Vital Signs: Vital Signs Temp Pulse Resp BP Pulse Ox 04/19/20 11:04 97.7 F 103 H 16 149/97 H 100
== END 2020-04-19 11:27 | disposition home or self-care (01) ==
LOC: DL.ED 10:54
DX: K04.7 Periapical abscess without sinus (principal); K02.9 Dental caries, unspecified; I10 Essential (primary) hypertension; E11.9 Type 2 diabetes mellitus without complications; Z72.0 Tobacco use; Z79.899 Other long term (current) drug therapy; Z88.1 Allergy status to other antibiotic agents; Z88.8 Allergy status to other drugs, medicaments and biological substances; Z88.0 Allergy status to penicillin
CPT/HCPCS: 99282; 99283

== ENCOUNTER 2020-07-26 12:41 | Emergency (ER) | payer MEDICAID ==
[2020-07-26] MEDS ORDERED: Sodium Chloride 0.9% 1,000 ML IV ONE ×2 (12:48→14:22)
[2020-07-26 13:06] LABS: O2 DELIVERY DEVICE ROOM AIR; O2 SATURATION ARTERIAL 96 % (95-100); PCO2 ARTERIAL 41 mmHg (35-45); PO2 ARTERIAL 76 mmHg (70-100)
[2020-07-26 13:07] LABS: BASE EXCESS ARTERIAL 1 mmol/L ((-2)-(+3))
[2020-07-26 13:22] LABS: ANION GAP 14.1 mEq/L (7-13); CHLORIDE,CL 86 mmol/L (98-107); SODIUM,NA 124 mmol/L (136-145)
[2020-07-26 13:37] LABS: CORONAVIRUS COVID-19 NAA NEGATIVE (NEGATIVE)
--- NOTE | 2020-07-26 13:40 | EDM.PDOC ---
ED HPI GENERAL MEDICAL PROBLEM - General Chief Complaint: Diabetic Complaint Stated Complaint: SENT FROM [facility] FOR BLOOD SUGAR Time Seen by Provider: 07/26/20 13:25 Source of Information: Reports: Patient History Limitations: Reports: No Limitations - History of Present Illness INITIAL COMMENTS - FREE TEXT/NARRATIVE: This 50 yo male patient was sent to the ED by his primary care facility due to a blood sugar level over 900. The patient reports he went to the [facility] to establish care in order to get his medications refilled and to get a new glucometer. The patient reports he has been having difficulties locating his glucometer and does not remember when he last checked his blood sugar level. 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 The patient reports he started taking his Metformin last (500 mg twice per day). The patient also reports he has seasonal allergies for which he takes Sudafed for. The patient reports the Sudafed makes him thirsty, when he drinks increased amounts of fluids, he has to go to the bathroom more frequently. The patient reports that he does not want to be admitted to the hospital due to these concerns. The patient reports that his provider advised him that he would need to come to the hospital for IV fluids, but he would be released in a couple of hours. The patient also reports chronic back pain over the 2-3 months. The patient states that he has been having difficulties managing stress. The patient reports he used to see Dr. Sears for his anxiety and stress. The patient reports he used to take Ativan (0.5 mg) 2 times per day for his stress. The patient reports he did not like Dr. Sears's replacement so he has been "just managing it on his own." - Related Data Allergies Allergy/AdvReac Type Severity Reaction Status Date / Time erythromycin base Allergy Hives Verified 04/19/20 11:02 naproxen Allergy Hives Verified 04/19/20 11:02 Penicillins Allergy rash and Verified 04/19/20 11:02 swelling Home Meds: Home Meds Lisinopril 1 tab PO DAILY 06/02/17 [History] metFORMIN HCl [Metformin HCl] 1 tab PO BID 06/02/17 [History] QUEtiapine [SEROquel] 04/19/20 [History] Past Medical History HEENT History: Reports: None Cardiovascular History: Reports: Hypertension Respiratory History: Reports: None Gastrointestinal History: Reports: Chronic Diarrhea, Hepatitis, Other (See Below) Other Gastrointestinal History: hepatitis C Genitourinary History: Reports: None Musculoskeletal History: Reports: Arthritis, Back Pain, Chronic Neurological History: Reports: Concussion Psychiatric History: Reports: Addiction, Anxiety, Mood Swings Endocrine/Metabolic History: Reports: Diabetes, Type II, Vitamin D Deficiency Hematologic History: Reports: None Immunologic History: Reports: None Oncologic (Cancer) History: Reports: None Dermatologic History: Reports: None - Infectious Disease History Infectious Disease History: Reports: Hepatitis C - Past Surgical History Head Surgeries/Procedures: Reports: None HEENT Surgical History: Reports: None Cardiovascular Surgical History: Reports: None Respiratory Surgical History: Reports: None GI Surgical History: Reports: None Neurological Surgical History: Reports: None Musculoskeletal Surgical History: Reports: None, Hip Replacement Other Musculoskeletal Surgeries/Procedures:: Right hip replacement Social & Family History - Family History Family Medical History: No Pertinent Family History - Caffeine Use Caffeine Use: Reports: Coffee, Soda ED ROS GENERAL - Review of Systems Review Of Systems: Comprehensive ROS is negative, except as noted in HPI. ED EXAM GENERAL NO PERIP PULSE - Physical Exam Exam: See Below Exam Limited By: No Limitations General Appearance: Alert, WD/WN, Moderate Distress Eye Exam: Bilateral Eye: EOMI, Normal Inspection, PERRL Ears: Normal External Exam, Normal Canal, Hearing Grossly Normal, Normal TMs Nose: Normal Inspection, Normal Mucosa, No Blood Throat/Mouth: Normal Inspection, Normal Lips, Normal Teeth, Normal Gums, Normal Oropharynx, Normal Voice, No Airway Compromise Head: Atraumatic, Normocephalic Neck: Normal Inspection, Supple, Non-Tender, Full Range of Motion Respiratory/Chest: No Respiratory Distress, Lungs Clear, Normal Breath Sounds, No Accessory Muscle Use, Chest Non-Tender Cardiovascular: Normal Peripheral Pulses, Regular Rate, Rhythm, No Edema, No Gallop, No JVD, No Murmur, No Rub GI/Abdominal: Normal Bowel Sounds, Soft, Non-Tender, No Organomegaly, No Distention, No Abnormal Bruit, No Mass (Male) Exam: Deferred Rectal (Males) Exam: Deferred Back Exam: Normal Inspection, Full Range of Motion, NT Extremities: Normal Inspection, Normal Range of Motion, Non-Tender, Normal Capillary Refill, No Pedal Edema Neurological: Alert, Oriented, CN II-XII Intact, Normal Cognition, Normal Gait, Normal Reflexes, No Motor/Sensory Deficits Psychiatric: Normal Affect, Normal Mood Skin Exam: Warm, Dry, Intact, Normal Color, No Rash Lymphatic: No Adenopathy #1 Interpretation EKG Date: 07/26/20 Time: 13:08 Rhythm: NSR Rate (Beats/Min): 76 [place]: Normal P-Wave: Present QRS: Normal ST-T: Normal QT: Normal Comparison: NA - No Prior EKG Course - Vital Signs Last Recorded V/S: Last Vital Signs Temp 98.3 F 07/26/20 12:51 Pulse 85 07/26/20 12:51 Resp 15 07/26/20 12:51 BP 116/82 07/26/20 12:51 Pulse Ox 97 07/26/20 12:51 - Orders/Labs/Meds Orders: Active Orders 24 hr Category Date Time Status Blood Glucose Check, Bedside [RC] ONETIME Care 07/26/20 12:49 Active EKG Documentation Completion [RC] ROUTINE Care 07/26/20 12:51 Active Peripheral IV Care [RC] . DIRECTED Care 07/26/20 12:50 Active Sodium Chloride 0.9% [Normal Saline] 1,000 ml Med 07/26/20 14:22 Ordered IV .BOLUS Medication Orders Sodium Chloride (Normal Saline) 1,000 mls @ 999 mls/hr IV .BOLUS ONE Stop: 07/26/20 15:22 Last Admin: 07/26/20 14:35 Dose: 999 mls/hr Documented by: JEAN Labs: Laboratory Tests 07/26/20 07/26/20 07/26/20 Range/Units 12:46 12:47 12:49 WBC 8.2 (5.0-10.0) 10^3/uL RBC 4.37 L (4.6-6.2) 10^6/uL Hgb 14.9 (14.0-18.0) g/dL Hct 42.8 (40.0-54.0) % MCV 97.9 (80-100) fL MCH 34.1 H (27.0-34.0) pg MCHC 34.8 (33.0-35.0) g/dL Plt Count 217 (150-450) 10^3/uL Neut % (Auto) 73.4 (42.2-75.2) % Lymph % (Auto) 14.9 L (20.5-50.1) % [place] % (Auto) 10.1 H (2-8) % Eos % (Auto) 1.1 (1.0-3.0) % Baso % (Auto) 0.5 (0.0-1.0) % ABG pH 7.41 (7.35-7.45) ABG pCO2 41 (35-45) mmHg ABG pO2 76 (70-100) mmHg ABG HCO3 25.0 (22-26) mmol/L ABG O2 Saturation 96 (95-100) % ABG Base Excess 1 ((-2)-(+3)) mmol/L O2 Delivery Device Room air Sodium (136-145) mmol/L Potassium (3.5-5.1) mmol/L Chloride (98-107) mmol/L Carbon Dioxide (21-32) mmol/L Anion Gap (7-13) mEq/L BUN (7-18) mg/dL Creatinine (0.70-1.30) mg/dL Est Cr Clr Drug Dosing Estimated GFR (MDRD) BUN/Creatinine Ratio (No establ ref range) Glucose (70-99) mg/dL POC Glucose (70-99) mg/dL Calcium (8.5-10.1) mg/dL Total Bilirubin (0.2-1.0) mg/dL AST (15-37) U/L ALT (16-63) U/L Alkaline Phosphatase (46-116) U/L Troponin I (0.000-0.056) ng/mL Total Protein (6.4-8.2) g/dL Albumin (3.4-5.0) g/dL Globulin Albumin/Globulin Ratio Urine Color (YELLOW) Urine Appearance (CLEAR) Urine pH (5.0-9.0) Ur Specific [place] (1.005-1.030) Urine Protein (NEGATIVE) Urine Glucose (UA) (NEGATIVE) Urine Ketones (NEGATIVE) Urine Occult Blood (NEGATIVE) Urine Nitrite (NEGATIVE) Urine Bilirubin (NEGATIVE) Urine Urobilinogen (0.2-1.0) mg/dL Ur Leukocyte Esterase (NEGATIVE) Urine RBC /HPF Urine WBC (0-5/HPF) /HPF Ur Epithelial Cells (NOT SEEN) /HPF Urine Bacteria (0-FEW/HPF) /HPF Ketones Influenza Type A RNA Negative (NEGATIVE) Influenza Type B RNA Negative (NEGATIVE) SARS-CoV-2 RNA (IMELDA) Negative (NEGATIVE) 07/26/20 07/26/20 07/26/20 Range/Units 12:49 12:51 13:40 WBC (5.0-10.0) 10^3/uL RBC (4.6-6.2) 10^6/uL Hgb (14.0-18.0) g/dL Hct (40.0-54.0) % MCV (80-100) fL MCH (27.0-34.0) pg MCHC (33.0-35.0) g/dL Plt Count (150-450) 10^3/uL Neut % (Auto) (42.2-75.2) % Lymph % (Auto) (20.5-50.1) % [place] % (Auto) (2-8) % Eos % (Auto) (1.0-3.0) % Baso % (Auto) (0.0-1.0) % ABG pH (7.35-7.45) ABG pCO2 (35-45) mmHg ABG pO2 (70-100) mmHg ABG HCO3 (22-26) mmol/L ABG O2 Saturation (95-100) % ABG Base Excess ((-2)-(+3)) mmol/L O2 Delivery Device Sodium 124 L (136-145) mmol/L Potassium 4.1 (3.5-5.1) mmol/L Chloride 86 L (98-107) mmol/L Carbon Dioxide 28 (21-32) mmol/L Anion Gap 14.1 H (7-13) mEq/L BUN 12 (7-18) mg/dL Creatinine 1.19 (0.70-1.30) mg/dL Est Cr Clr Drug Dosing TNP Estimated GFR (MDRD) > 60 BUN/Creatinine Ratio 10.1 (No establ ref range) Glucose 696 H* (70-99) mg/dL POC Glucose > 600 H* (70-99) mg/dL Calcium 9.1 (8.5-10.1) mg/dL Total Bilirubin 1.4 H (0.2-1.0) mg/dL AST 273 H (15-37) U/L ALT 363 H (16-63) U/L Alkaline Phosphatase 369 H (46-116) U/L Troponin I < 0.017 (0.000-0.056) ng/mL Total Protein 9.2 H (6.4-8.2) g/dL Albumin 3.1 L (3.4-5.0) g/dL Globulin 6.1 Albumin/Globulin Ratio 0.51 Urine Color Yellow (YELLOW) Urine Appearance Clear (CLEAR) Urine pH 7.0 (5.0-9.0) Ur Specific [place] 1.015 (1.005-1.030) Urine Protein Negative (NEGATIVE) Urine Glucose (UA) 500 H (NEGATIVE) Urine Ketones Negative (NEGATIVE) Urine Occult Blood Trace-intact H (NEGATIVE) Urine Nitrite Negative (NEGATIVE) Urine Bilirubin Negative (NEGATIVE) Urine Urobilinogen 0.2 (0.2-1.0) mg/dL Ur Leukocyte Esterase Negative (NEGATIVE) Urine RBC 0-5 /HPF Urine WBC Not seen (0-5/HPF) /HPF Ur Epithelial Cells Not seen (NOT SEEN) /HPF Urine Bacteria Not seen (0-FEW/HPF) /HPF Ketones Negative Influenza Type A RNA (NEGATIVE) Influenza Type B RNA (NEGATIVE) SARS-CoV-2 RNA (IMELDA) (NEGATIVE) 07/26/ Range/Units 14:25 WBC (5.0-10.0) 10^3/uL RBC (4.6-6.2) 10^6/uL Hgb (14.0-18.0) g/dL Hct (40.0-54.0) % MCV (80-100) fL MCH (27.0-34.0) pg MCHC (33.0-35.0) g/dL Plt Count (150-450) 10^3/uL Neut % (Auto) (42.2-75.2) % Lymph % (Auto) (20.5-50.1) % [place] % (Auto) (2-8) % Eos % (Auto) (1.0-3.0) % Baso % (Auto) (0.0-1.0) % ABG pH (7.35-7.45) ABG pCO2 (35-45) mmHg ABG pO2 (70-100) mmHg ABG HCO3 (22-26) mmol/L ABG O2 Saturation (95-100) % ABG Base Excess ((-2)-(+3)) mmol/L O2 Delivery Device Sodium (136-145) mmol/L Potassium (3.5-5.1) mmol/L Chloride (98-107) mmol/L Carbon Dioxide (21-32) mmol/L Anion Gap (7-13) mEq/L BUN (7-18) mg/dL Creatinine (0.70-1.30) mg/dL Est Cr Clr Drug Dosing Estimated GFR (MDRD) BUN/Creatinine Ratio (No establ ref range) Glucose (70-99) mg/dL POC Glucose 506 H* (70-99) mg/dL Calcium (8.5-10.1) mg/dL Total Bilirubin (0.2-1.0) mg/dL AST (15-37) U/L ALT (16-63) U/L Alkaline Phosphatase (46-116) U/L Troponin I (0.000-0.056) ng/mL Total Protein (6.4-8.2) g/dL Albumin (3.4-5.0) g/dL Globulin Albumin/Globulin Ratio Urine Color (YELLOW) Urine Appearance (CLEAR) Urine pH (5.0-9.0) Ur Specific [place] (1.005-1.030) Urine Protein (NEGATIVE) Urine Glucose (UA) (NEGATIVE) Urine Ketones (NEGATIVE) Urine Occult Blood (NEGATIVE) Urine Nitrite (NEGATIVE) Urine Bilirubin (NEGATIVE) Urine Urobilinogen (0.2-1.0) mg/dL Ur Leukocyte Esterase (NEGATIVE) Urine RBC /HPF Urine WBC (0-5/HPF) /HPF Ur Epithelial Cells (NOT SEEN) /HPF Urine Bacteria (0-FEW/HPF) /HPF Ketones Influenza Type A RNA (NEGATIVE) Influenza Type B RNA (NEGATIVE) SARS-CoV-2 RNA (IMELDA) (NEGATIVE) Meds: Medications Generic Name Dose Route Start Last Admin Trade Name Freq PRN Reason Stop Dose Admin Sodium Chloride 1,000 mls @ 999 mls/hr 07/26/20 14:22 07/26/20 14:35 Normal Saline IV 07/26/20 15:22 999 mls/hr .BOLUS ONE Administration Discontinued Medications Generic Name Dose Route Start Last Admin Trade Name Rox PRN Reason Stop Dose Admin Sodium Chloride 1,000 mls @ 999 mls/hr 07/26/20 12:48 07/26/20 13:48 Normal Saline IV 07/26/20 13:48 Infused .BOLUS ONE Infusion Departure - Departure Time of Disposition: 15:06 Disposition: Home, Self-Care 01 Condition: Fair Clinical Impression: Hyperglycemia due to diabetes mellitus - Discharge Information *PRESCRIPTION DRUG MONITORING PROGRAM REVIEWED*: Not Applicable *COPY OF PRESCRIPTION DRUG MONITORING REPORT IN PATIENT JOSE JUAN: Not Applicable Instructions: Hyperglycemia, Uhzz-ur-Alni Forms: ED Department Discharge Care Plan Goals: The patient was advised of the examination, lab and EKG results during the visit. The patient was given 2 liters of IV fluid during the visit in the ED. The patient's blood sugar dropped to 438 throughout the visit. The patient was advised to increase his Metformin to 1000 mg in the morning and 500 mg in the evening. The patient should follow-up with his primary care facility for continued evaluation and further management. If the patient has any additional symptoms or concerns, the patient should either return to the emergency department or visit his primary care facility. Sepsis Event Note (ED) - Focused Exam Vital Signs: Vital Signs Temp Pulse Resp BP Pulse Ox 07/26/20 12:51 98.3 F 85 15 116/82 97 - My Orders Last 24 Hours: My Active Orders 07/26/20 12:49 Blood Glucose Check, Bedside [RC] ONETIME 07/26/20 12:50 Peripheral IV Care [RC] . DIRECTED 07/26/20 12:51 EKG Documentation Completion [RC] ROUTINE 07/26/20 14:22 Sodium Chloride 0.9% [Normal Saline] 1,000 ml IV .BOLUS - Assessment/Plan Last 24 Hours: My Active Orders 07/26/20 12:49 Blood Glucose Check, Bedside [RC] ONETIME 07/26/20 12:50 Peripheral IV Care [RC] . DIRECTED 07/26/20 12:51 EKG Documentation Completion [RC] ROUTINE 07/26/20 14:22 Sodium Chloride 0.9% [Normal Saline] 1,000 ml IV .BOLUS
== END 2020-07-26 15:37 | disposition home or self-care (01) ==
LOC: DL.ED 12:41
DX: E11.65 Type 2 diabetes mellitus with hyperglycemia (principal); I10 Essential (primary) hypertension; Z88.1 Allergy status to other antibiotic agents; Z88.8 Allergy status to other drugs, medicaments and biological substances; Z88.0 Allergy status to penicillin; Z79.84 Long term (current) use of oral hypoglycemic drugs; Z79.899 Other long term (current) drug therapy; Z20.822 Contact with and (suspected) exposure to COVID-19
CPT/HCPCS: 0240U; 36415; 36600; 80053; 81001; 82009; 82803; 82947; 84484; 85025; 93005; 99285; J7030

== ENCOUNTER 2020-07-28 19:17 | Emergency (ER) | payer MEDICAID | END 2020-07-28 21:26 | disposition left against medical advice (07) | LOC: DL.ED 19:17 | DX: F41.0 Panic disorder [episodic paroxysmal anxiety] (principal); Z53.21 Procedure and treatment not carried out due to patient leaving prior to being seen by health care provider ==

== ENCOUNTER 2021-01-01 17:16 | Emergency (ER) | payer MEDICAID ==
[2021-01-01] MEDS ORDERED: Clindamycin HCl 150 MG Cap PO ONE (17:40)
--- NOTE | 2021-01-01 17:45 | EDM.PDOC ---
Scribed by Clary Vega 01/01/21 1139 for Jean-Pierre Collado MD ED HPI GENERAL MEDICAL PROBLEM - General Chief Complaint: General Stated Complaint: TOP LEFT TOOTH, SWELLING Time Seen by Provider: 01/01/21 17:25 Source of Information: Reports: Patient, RN, RN Notes Reviewed History Limitations: Reports: No Limitations - History of Present Illness INITIAL COMMENTS - FREE TEXT/NARRATIVE: Patient presents to the ED by POV with swelling to left upper jaw, lateral to nose. No complaints of pain. Patient diagnosed with abscess to a broken tooth on the upper left side about 3 weeks ago, had personal issues arise that prevented followup after medication course complete. Wanted to get checked out because it doesn't seem to be getting better and he felt it shouldn't wait until tomorrow. He intends to followup with [facility] tomorrow. Onset: Gradual Duration: Constant Location: Reports: Other (tooth) Quality: Reports: Ache Severity: Moderate Improves with: Reports: None Worsens with: Reports: None Associated Symptoms: Reports: No Other Symptoms - Related Data Allergies Allergy/AdvReac Type Severity Reaction Status Date / Time erythromycin base Allergy Hives Verified 01/01/21 17:29 naproxen Allergy Hives Verified 01/01/21 17:29 Penicillins Allergy rash and Verified 01/01/21 17:29 swelling Home Meds: Home Meds Lisinopril 2.5 mg PO DAILY 06/02/17 [History] Past Medical History HEENT History: Reports: None Cardiovascular History: Reports: Hypertension Respiratory History: Reports: None Gastrointestinal History: Reports: Chronic Diarrhea, Hepatitis, Other (See Below) Other Gastrointestinal History: Hepatitis C Genitourinary History: Reports: None Musculoskeletal History: Reports: Arthritis, Back Pain, Chronic Neurological History: Reports: Concussion Psychiatric History: Reports: Addiction, Anxiety, Mood Swings Endocrine/Metabolic History: Reports: Diabetes, Type II, Vitamin D Deficiency Hematologic History: Reports: None Immunologic History: Reports: None Oncologic (Cancer) History: Reports: None Dermatologic History: Reports: None - Infectious Disease History Infectious Disease History: Reports: Hepatitis C - Past Surgical History Head Surgeries/Procedures: Reports: None HEENT Surgical History: Reports: None Cardiovascular Surgical History: Reports: None Respiratory Surgical History: Reports: None GI Surgical History: Reports: None Neurological Surgical History: Reports: None Musculoskeletal Surgical History: Reports: None, Hip Replacement Other Musculoskeletal Surgeries/Procedures:: Right hip replacement Social & Family History - Family History Family Medical History: No Pertinent Family History - Caffeine Use Caffeine Use: Reports: None, Coffee, Energy Drinks, Soda, Tea, Other ED ROS ENT - Review of Systems Review Of Systems: Comprehensive ROS is negative, except as noted in HPI. ED EXAM, ENT - Physical Exam Exam: See Below Exam Limited By: No Limitations General Appearance: Alert, WD/WN, No Apparent Distress Eye Exam: Bilateral Eye: Normal Inspection Nose: Normal Inspection Mouth/Throat: Normal Lips, Other (Left maxillary dental decay/caries with premolar fracture which appears discolored and chronic with mild left face swelling, nontender.) Head: Atraumatic, Normocephalic Neck: Normal Inspection Respiratory/Chest: No Respiratory Distress Neurological: Alert, Oriented, No Motor/Sensory Deficits Psychiatric: Normal Mood Skin: Warm, Dry, Intact, Normal Color, No Rash Course - Vital Signs Last Recorded V/S: Last Vital Signs Temp 97.7 F 01/01/21 17:24 Pulse 99 01/01/21 17:24 Resp 20 01/01/21 17:24 BP 145/98 H 01/01/21 17:24 Pulse Ox 96 01/01/21 17:24 - Orders/Labs/Meds Orders: Active Orders 24 hr Category Date Time Status clindamycin HCL [Cleocin] Med 01/01/21 17:40 Once 300 mg PO ONETIME ONE Medication Orders Clindamycin HCl (Clindamycin Hcl 150 Mg Cap) 300 mg PO ONETIME ONE Stop: 01/01/21 17:41 Meds: Medications Generic Name Dose Route Start Last Admin Trade Name Rox PRN Reason Stop Dose Admin Clindamycin HCl 300 mg 01/01/21 17:40 Clindamycin Hcl 150 Mg Cap PO 01/01/21 17:41 ONETIME ONE Departure - Departure Time of Disposition: 17:41 Disposition: Home, Self-Care 01 Condition: Good Clinical Impression: Dental infection - Discharge Information *PRESCRIPTION DRUG MONITORING PROGRAM REVIEWED*: Not Applicable *COPY OF PRESCRIPTION DRUG MONITORING REPORT IN PATIENT JOSE JUAN: Not Applicable Instructions: Dental Abscess, [id number] Forms: ED Department Discharge Additional Instructions: Rx: Clindamycin 300mg Follow up with dentist tomorrow as planned. Sepsis Event Note (ED) - Focused Exam Vital Signs: Vital Signs Temp Pulse Resp BP Pulse Ox 01/01/21 17:24 97.7 F 99 20 145/98 H 96 - My Orders Last 24 Hours: My Active Orders 01/01/21 17:40 clindamycin HCL [Cleocin] 300 mg PO ONETIME ONE - Assessment/Plan Last 24 Hours: My Active Orders 01/01/21 17:40 clindamycin HCL [Cleocin] 300 mg PO ONETIME ONE I have read and agree with the documentation that has been completed regarding this visit. By signing this record, I attest that the documentation was completed in my physical presence and is an accurate record of the encounter.
== END 2021-01-01 17:50 | disposition home or self-care (01) ==
LOC: DL.ED 17:16
DX: K04.7 Periapical abscess without sinus (principal); I10 Essential (primary) hypertension; E11.9 Type 2 diabetes mellitus without complications; Z79.899 Other long term (current) drug therapy; Z88.8 Allergy status to other drugs, medicaments and biological substances; Z88.0 Allergy status to penicillin
CPT/HCPCS: 99282; A9270

== ENCOUNTER 2021-05-19 16:34 | Emergency (ER) | payer MEDICAID ==
[~2021-05-19 16:34] MED LIST: HYDROmorphone 0.5 MG/0.5 ML Syringe IVPUSH ONE
[2021-05-19] MEDS ORDERED: Ondansetron 4 MG/2 ML SDV IVPUSH ONE (16:36)
[2021-05-19] MEDS ORDERED: Promethazine 25 MG/ML SDV IM ONE (16:45)
[2021-05-19 17:37] LABS: ANION GAP 20.8 mEq/L (7-13); CHLORIDE,CL 96 mmol/L (98-107); SODIUM,NA 135 mmol/L (136-145)
[2021-05-19] MEDS ORDERED: Sodium Chloride 0.9% 1,000 ML IV ONE ×2 (17:51→19:42)
[2021-05-19] MEDS ORDERED: Iopamidol 612 MG/ML 100 ML Bottle IVPUSH ONE (17:56)
[2021-05-19] MEDS ORDERED: Clindamycin Phosphate 900 MG in Sodium Chloride 0.9% 100 ML IV ONE (19:40)
[2021-05-19] MEDS ORDERED: Levofloxacin/Dextrose 5%-Water 500 MG in Premix Bag 1 BAG IV ONE (20:24)
[2021-05-19] MEDS ORDERED: metroNIDAZOLE/Normal Saline 500 MG in Premix Bag 100 BAG IV ONE (20:25)
== END 2021-05-19 21:00 ==
LOC: DL.ED 16:34
DX: K81.9 Cholecystitis, unspecified (principal); E11.10 Type 2 diabetes mellitus with ketoacidosis without coma; D72.829 Elevated white blood cell count, unspecified; I10 Essential (primary) hypertension; Z79.899 Other long term (current) drug therapy; Z88.0 Allergy status to penicillin; Z88.1 Allergy status to other antibiotic agents; Z88.5 Allergy status to narcotic agent
CPT/HCPCS: 36415; 74177; 80053; 80307; 81001; 83605; 83690; 83735; 84484; 85025; 86140; 87040; 87077; 93005; 96365; 96368; 96375; 99285-25; J1170; J1956; J2405; J3490; J7030; Q9967

== ENCOUNTER 2021-07-27 19:20 | Emergency (ER) | payer MEDICAID | END 2021-07-27 20:11 | disposition left against medical advice (07) | LOC: DL.ED 19:20 | DX: Z53.21 Procedure and treatment not carried out due to patient leaving prior to being seen by health care provider (principal) ==

== ENCOUNTER 2021-09-06 22:43 | Emergency (ER) | payer MEDICAID ==
[2021-09-06 23:36] LABS: AMPHETAMINES,URINE NEGATIVE (NEGATIVE); BARBITURATES,URINE NEGATIVE (NEGATIVE); BENZODIAZEPINE,URINE NEGATIVE (NEGATIVE); MDMA (ECSTASY), URINE NEGATIVE (NEGATIVE); METHADONE,URINE NEGATIVE (NEGATIVE); METHAMPHETAMINES,URINE POSITIVE (NEGATIVE); OPIATES,URINE NEGATIVE (NEGATIVE); OXYCODONE,URINE NEGATIVE (NEGATIVE); PHENCYCLIDINE,URINE NEGATIVE (NEGATIVE); TCA,URINE NEGATIVE (NEGATIVE)
== END 2021-09-06 23:28 ==
LOC: DL.ED 22:43
DX: R45.851 Suicidal ideations (principal); F10.920 Alcohol use, unspecified with intoxication, uncomplicated; I10 Essential (primary) hypertension; E11.9 Type 2 diabetes mellitus without complications; F17.210 Nicotine dependence, cigarettes, uncomplicated; Z91.19 Patient's noncompliance with other medical treatment and regimen; Z88.1 Allergy status to other antibiotic agents; Z88.0 Allergy status to penicillin; Z88.6 Allergy status to analgesic agent; Z79.899 Other long term (current) drug therapy
CPT/HCPCS: 80305-QW; 81003; 99284; 99285

== ENCOUNTER 2021-09-29 03:08 | Emergency (ER) | payer MEDICAID ==
[2021-09-29] MEDS ORDERED: Aspirin 81 MG Tab.Chew PO ONE (03:32)
[2021-09-29] MEDS ORDERED: Nitroglycerin 0.4 MG Tab.SL SL ONE ×2 (03:32→04:10)
[2021-09-29 03:57] LABS: ANION GAP 19.4 mEq/L (7-13); CHLORIDE,CL 95 mmol/L (98-107); SODIUM,NA 132 mmol/L (136-145)
[2021-09-29 03:59] LABS: ESTIMATED GFR 97 mL/min (>=60)
[2021-09-29] MEDS ORDERED: Ondansetron 4 MG/2 ML SDV IVPUSH ONE (04:10)
[2021-09-29 04:31] LABS: AMPHETAMINES,URINE POSITIVE (NEGATIVE); BARBITURATES,URINE NEGATIVE (NEGATIVE); BENZODIAZEPINE,URINE NEGATIVE (NEGATIVE); MDMA (ECSTASY), URINE NEGATIVE (NEGATIVE); METHADONE,URINE NEGATIVE (NEGATIVE); METHAMPHETAMINES,URINE POSITIVE (NEGATIVE); OPIATES,URINE NEGATIVE (NEGATIVE); OXYCODONE,URINE NEGATIVE (NEGATIVE); PHENCYCLIDINE,URINE NEGATIVE (NEGATIVE); TCA,URINE NEGATIVE (NEGATIVE)
[2021-09-29] MEDS ORDERED: LORazepam 1 MG Tab PO ONE (05:42)
== END 2021-09-29 06:12 | disposition home or self-care (01) ==
LOC: DL.ED 03:08
DX: E11.65 Type 2 diabetes mellitus with hyperglycemia (principal); F15.10 Other stimulant abuse, uncomplicated; F41.9 Anxiety disorder, unspecified; I10 Essential (primary) hypertension; Z88.1 Allergy status to other antibiotic agents; Z88.8 Allergy status to other drugs, medicaments and biological substances; Z88.0 Allergy status to penicillin; Z79.899 Other long term (current) drug therapy; Z79.4 Long term (current) use of insulin; Z20.822 Contact with and (suspected) exposure to COVID-19
CPT/HCPCS: 36415; 71045; 80053; 80305-QW; 80307; 81001; 82150; 83690; 83880; 84484; 85025; 85379; 85610; 93005; 96374; 99284-25; A9270-GY; J2405; U0002

== ENCOUNTER 2021-10-16 09:47 | Emergency (ER) | payer MEDICAID ==
[2021-10-16] MEDS ORDERED: LORazepam 0.5 MG Tab PO ONE (10:29)
[2021-10-16] MEDS ORDERED: Ondansetron 4 MG Tab.DIS PO ONE (10:30)
[2021-10-16 11:17] LABS: ANION GAP 15.9 mEq/L (7-13); CHLORIDE,CL 98 mmol/L (98-107); SODIUM,NA 136 mmol/L (136-145)
[2021-10-16 11:27] LABS: ESTIMATED GFR 106 mL/min (>=60)
[2021-10-16] MEDS ORDERED: Magnesium Sulfate/Water 2 GM in Premix Bag 1 BAG IV ONE (11:27)
[2021-10-16 11:55] LABS: AMPHETAMINES,URINE NEGATIVE (NEGATIVE); BARBITURATES,URINE NEGATIVE (NEGATIVE); BENZODIAZEPINE,URINE NEGATIVE (NEGATIVE); MDMA (ECSTASY), URINE NEGATIVE (NEGATIVE); METHADONE,URINE NEGATIVE (NEGATIVE); METHAMPHETAMINES,URINE NEGATIVE (NEGATIVE); OPIATES,URINE NEGATIVE (NEGATIVE); OXYCODONE,URINE NEGATIVE (NEGATIVE); PHENCYCLIDINE,URINE NEGATIVE (NEGATIVE); TCA,URINE NEGATIVE (NEGATIVE)
== END 2021-10-16 13:12 | disposition home or self-care (01) ==
LOC: DL.ED 09:47
DX: F10.932 Alcohol use, unspecified with withdrawal with perceptual disturbance (principal); F41.9 Anxiety disorder, unspecified; E11.65 Type 2 diabetes mellitus with hyperglycemia; E83.42 Hypomagnesemia; R74.8 Abnormal levels of other serum enzymes; Y90.0 Blood alcohol level of less than 20 mg/100 ml
CPT/HCPCS: 36415; 80053; 80305-QW; 80307; 81003; 83735; 85025; 96365; 99283-25; 99284; A9270-GY; J3475

== ENCOUNTER 2021-10-30 17:09 | Emergency (ER) | payer MEDICAID ==
[2021-10-30 17:45] LABS: AMPHETAMINES,URINE NEGATIVE (NEGATIVE); BARBITURATES,URINE NEGATIVE (NEGATIVE); BENZODIAZEPINE,URINE NEGATIVE (NEGATIVE); MDMA (ECSTASY), URINE NEGATIVE (NEGATIVE); METHADONE,URINE NEGATIVE (NEGATIVE); METHAMPHETAMINES,URINE POSITIVE (NEGATIVE); OPIATES,URINE NEGATIVE (NEGATIVE); OXYCODONE,URINE NEGATIVE (NEGATIVE); PHENCYCLIDINE,URINE NEGATIVE (NEGATIVE); TCA,URINE NEGATIVE (NEGATIVE)
== END 2021-10-30 18:10 | disposition home or self-care (01) ==
LOC: DL.ED 17:09
DX: Z02.89 Encounter for other administrative examinations (principal); Z88.1 Allergy status to other antibiotic agents; Z88.0 Allergy status to penicillin; Z88.8 Allergy status to other drugs, medicaments and biological substances; Z79.899 Other long term (current) drug therapy; Z79.4 Long term (current) use of insulin
CPT/HCPCS: 80305-QW; 82947; 99282

== ENCOUNTER 2022-08-02 10:07 | Emergency (ER) | payer MEDICAID ==
[2022-08-02] MEDS ORDERED: Sodium Chloride 0.9% 10 ML Syringe FLUSH PRN (10:17)
[2022-08-02 10:30] LABS: BASOPHILS PERCENT AUTO 0.7 % (0.0-1.0); EOSINOPHILS PERCENT AUTO 2.2 % (1.0-3.0); HEMATOCRIT 41.1 % (40.0-54.0); LYMPHOCYTES PERCENT AUTO 25.7 % (20.5-50.1); MEAN CORPUSCULAR HEMOGLOBIN 33.5 pg (27.0-34.0); MEAN CORPUSCULAR HGB CONC 36.5 g/dL (33.0-35.0); MEAN CORPUSCULAR VOLUME 91.7 fL (80-100); MONOCYTES PERCENT AUTO 13.7 % (2-8); NEUTROPHILS PERCENT AUTO 57.7 % (42.2-75.2); PLATELET COUNT,PLT 230 10^3/uL (150-450); RED BLOOD CELL COUNT 4.48 10^6/uL (4.6-6.2); WHITE BLOOD CELL COUNT,WBC 11.8 10^3/uL (5.0-10.0)
[2022-08-02 10:52] LABS: A/G RATIO 0.8; ALANINE AMINOTRANSFERASE,ALT 62 U/L (16-63); ALBUMIN 3.7 g/dL (3.4-5.0); ALKALINE PHOSPHATASE 259 U/L (46-116); AMYLASE 33 U/L (25-115); ANION GAP 16.1 mEq/L (7-13); ASPARTATE AMNIOTRANSFERASE,AST 41 U/L (15-37); BILIRUBIN TOTAL 0.5 mg/dL (0.2-1.0); BLOOD UREA NITROGEN,BUN 18 mg/dL (7-18); BUN/CREATININE RATIO 15.7 (No establ ref range); CALCIUM 8.9 mg/dL (8.5-10.1); CARBON DIOXIDE,CO2 24 mmol/L (21-32); CHLORIDE,CL 94 mmol/L (98-107); CREATININE 1.15 mg/dL (0.70-1.30); EST CRCL DRUG DOSING (CG) 79.35 mL/min; LIPASE 479 U/L (73-393); MAGNESIUM 1.5 mg/dL (1.8-2.4); POTASSIUM,K 4.1 mmol/L (3.5-5.1); PROTEIN TOTAL,TP 8.1 g/dL (6.4-8.2); SODIUM,NA 130 mmol/L (136-145)
[2022-08-02 10:53] LABS: ESTIMATED GFR 78 mL/min (>=60); ETHANOL BLOOD MEDICAL < 3 mg/dL (0); GLUCOSE RANDOM 512 mg/dL (70-99)
[2022-08-02 10:53] LABS: APPEARANCE,URINE CLEAR (CLEAR); BILIRUBIN,URINE NEGATIVE (NEGATIVE); COLOR,URINE YELLOW (YELLOW); GLUCOSE,URINE 500 (NEGATIVE); KETONES,URINE NEGATIVE (NEGATIVE); LEUKOCYTE ESTERASE,URINE NEGATIVE (NEGATIVE); NITRITE,URINE NEGATIVE (NEGATIVE); OCCULT BLOOD,URINE NEGATIVE (NEGATIVE); PROTEIN,URINE NEGATIVE (NEGATIVE); UROBILINOGEN,URINE 0.2 mg/dL (0.2-1.0)
[2022-08-02 10:54] LABS: AMPHETAMINES,URINE NEGATIVE (NEGATIVE); BARBITURATES,URINE NEGATIVE (NEGATIVE); BENZODIAZEPINE,URINE NEGATIVE (NEGATIVE); MDMA (ECSTASY), URINE NEGATIVE (NEGATIVE); METHADONE,URINE NEGATIVE (NEGATIVE); METHAMPHETAMINES,URINE NEGATIVE (NEGATIVE); OPIATES,URINE NEGATIVE (NEGATIVE); OXYCODONE,URINE NEGATIVE (NEGATIVE); PHENCYCLIDINE,URINE NEGATIVE (NEGATIVE); TCA,URINE NEGATIVE (NEGATIVE)
[2022-08-02] MEDS ORDERED: 50% Dextrose in Water 50 ML Syringe IVPUSH PRN (10:54)
[2022-08-02] MEDS ORDERED: Glucagon,Human Recombinant 1 MG Vial IM PRN (10:54)
[2022-08-02] MEDS ORDERED: Insulin Regular, Human 100 Units/ML 3 ML Vial IV ONE (10:54)
[2022-08-02] MEDS ORDERED: Sodium Chloride 0.9% 1,000 ML IV ONE (10:57)
[2022-08-02] MEDS ORDERED: Magnesium Sulfate/Water 2 GM in Premix Bag 1 BAG IV ONE (10:58)
[2022-08-02] MEDS: Sodium Chloride 0.9% 1,000 ML IV ONE ×2 (12:04→17:24)
== END 2022-08-02 12:13 | disposition left against medical advice (07) ==
LOC: DL.ED 10:07
DX: F41.9 Anxiety disorder, unspecified (principal); E83.42 Hypomagnesemia; E11.65 Type 2 diabetes mellitus with hyperglycemia; I10 Essential (primary) hypertension; Z88.1 Allergy status to other antibiotic agents; Z88.0 Allergy status to penicillin; Z88.6 Allergy status to analgesic agent; Z79.899 Other long term (current) drug therapy; Z79.4 Long term (current) use of insulin
CPT/HCPCS: 36415; 71045; 80053; 80305-QW; 80307; 81003; 82009; 82150; 82947; 83690; 83735; 84484; 85025; 93005; 96365; 99285-25; J1815-GY; J3475; J3490; J7030

== ENCOUNTER 2022-08-06 10:16 | Emergency (ER) | payer MEDICAID ==
[2022-08-06] MEDS ORDERED: Albuterol/Ipratropium 3.0-0.5 MG/3 ML Neb Soln NEB ONE (10:40)
== END 2022-08-06 10:53 | disposition left against medical advice (07) ==
LOC: DL.ED 10:16
DX: F31.9 Bipolar disorder, unspecified (principal); J45.909 Unspecified asthma, uncomplicated; I10 Essential (primary) hypertension; E11.9 Type 2 diabetes mellitus without complications; Z79.4 Long term (current) use of insulin; Z79.899 Other long term (current) drug therapy; Z88.8 Allergy status to other drugs, medicaments and biological substances; Z88.0 Allergy status to penicillin; Z88.1 Allergy status to other antibiotic agents
CPT/HCPCS: 94640; 99282; 99284; J7620-GY

== ENCOUNTER 2023-09-22 18:49 | Emergency (ER) | payer MEDICAID | END 2023-09-22 19:18 | disposition left against medical advice (07) | LOC: DL.ED 18:49 | DX: M54.9 Dorsalgia, unspecified (principal); I10 Essential (primary) hypertension; E11.9 Type 2 diabetes mellitus without complications; Z79.4 Long term (current) use of insulin; Z79.899 Other long term (current) drug therapy; Z88.0 Allergy status to penicillin; Z88.1 Allergy status to other antibiotic agents; Z88.6 Allergy status to analgesic agent | CPT/HCPCS: 99282 ==

== ENCOUNTER 2023-10-01 08:09 | Emergency (ER) | payer MEDICAID ==
[2023-10-01] MEDS: Albuterol/Ipratropium 3.0-0.5 MG/3 ML Neb Soln NEB ONE (08:47)
[2023-10-01] MEDS: methylPREDNISolone Sodium Succinate 125 MG/2 ML SDV IM ONE (08:47)
== END 2023-10-01 09:48 | disposition home or self-care (01) ==
LOC: DL.ED 08:09
DX: U07.1 COVID-19 (principal); I10 Essential (primary) hypertension; E11.9 Type 2 diabetes mellitus without complications; F17.210 Nicotine dependence, cigarettes, uncomplicated; Z79.4 Long term (current) use of insulin; Z79.899 Other long term (current) drug therapy; Z88.1 Allergy status to other antibiotic agents; Z88.0 Allergy status to penicillin; Z88.6 Allergy status to analgesic agent
CPT/HCPCS: 71046; 87635; 87804; 96372; 99284; 99285; J2919; J7620-GY; U0002

== ENCOUNTER 2023-10-21 00:40 | Emergency (ER) | payer MEDICAID ==
[2023-10-21] MEDS: Albuterol/Ipratropium 3.0-0.5 MG/3 ML Neb Soln NEB ONE (01:36)
[2023-10-21 01:44] LABS: BASOPHILS PERCENT AUTO 1.4 % (0.0-1.0); EOSINOPHILS PERCENT AUTO 4.6 % (1.0-3.0); HEMATOCRIT 40.7 % (40.0-54.0); HEMOGLOBIN 14.8 g/dL (14.0-18.0); LYMPHOCYTES PERCENT AUTO 41.4 % (20.5-50.1); MEAN CORPUSCULAR HEMOGLOBIN 34.6 pg (27.0-34.0); MEAN CORPUSCULAR HGB CONC 36.4 g/dL (33.0-35.0); MEAN CORPUSCULAR VOLUME 95.1 fL (80-100); MONOCYTES PERCENT AUTO 12.4 % (2-8); NEUTROPHILS PERCENT AUTO 40.2 % (42.2-75.2); PLATELET COUNT,PLT 185 10^3/uL (150-450); RED BLOOD CELL COUNT 4.28 10^6/uL (4.6-6.2); WHITE BLOOD CELL COUNT,WBC 6.4 10^3/uL (5.0-10.0)
== END 2023-10-21 02:02 | disposition left against medical advice (07) ==
LOC: DL.ED 00:40
DX: J44.1 Chronic obstructive pulmonary disease with (acute) exacerbation (principal); E11.65 Type 2 diabetes mellitus with hyperglycemia; I10 Essential (primary) hypertension; F17.200 Nicotine dependence, unspecified, uncomplicated; Z79.899 Other long term (current) drug therapy; Z79.4 Long term (current) use of insulin; Z88.0 Allergy status to penicillin; Z88.1 Allergy status to other antibiotic agents; Z88.5 Allergy status to narcotic agent
CPT/HCPCS: 36415; 71045; 82947; 83735; 84484; 85025; 99285; J7620-GY

== ENCOUNTER 2023-11-05 17:36 | Inpatient (IN) | payer MEDICAID ==
[2023-11-05] MEDS: Sodium Chloride 0.9% 1,000 ML IV ONE (17:54)
[2023-11-05] MEDS: Sodium Chloride 0.9% 10 ML Syringe FLUSH PRN (17:54)
[2023-11-05 17:59] LABS: BASOPHILS PERCENT AUTO 0.8 % (0.0-1.0); EOSINOPHILS PERCENT AUTO 1.2 % (1.0-3.0); HEMATOCRIT 43.4 % (40.0-54.0); HEMOGLOBIN 15.6 g/dL (14.0-18.0); MEAN CORPUSCULAR HEMOGLOBIN 34.5 pg (27.0-34.0); MEAN CORPUSCULAR HGB CONC 35.9 g/dL (33.0-35.0); MONOCYTES PERCENT AUTO 15.7 % (2-8); NEUTROPHILS PERCENT AUTO 64.3 % (42.2-75.2); PLATELET COUNT,PLT 165 10^3/uL (150-450); RED BLOOD CELL COUNT 4.52 10^6/uL (4.6-6.2); WHITE BLOOD CELL COUNT,WBC 9.3 10^3/uL (5.0-10.0)
[2023-11-05 18:17] LABS: INR 1.1 (0.9-1.2); PROTHROMBIN TIME 10.9 SEC (9.0-12.0); PTT,PARTIAL THROMBOPLSTIN TIME 23.9 SEC (22.0-34.0)
[2023-11-05 18:21] LABS: B-TYPE NATRIURETIC PEPTIDE,BNP 56 pg/ml (0-100)
[2023-11-05 19:00] LABS: A/G RATIO 0.8; ALANINE AMINOTRANSFERASE,ALT 103 U/L (16-63); ALBUMIN 3.4 g/dL (3.4-5.0); ALKALINE PHOSPHATASE 132 U/L (46-116); ANION GAP 22.8 mEq/L (7-13); ASPARTATE AMNIOTRANSFERASE,AST 110 U/L (15-37); BILIRUBIN TOTAL 2.5 mg/dL (0.2-1.0); BLOOD UREA NITROGEN,BUN 14 mg/dL (7-18); BUN/CREATININE RATIO 8.2 (No establ ref range); CALCIUM 8.8 mg/dL (8.5-10.1); CARBON DIOXIDE,CO2 19 mmol/L (21-32); CHLORIDE,CL 95 mmol/L (98-107); EST CRCL DRUG DOSING (CG) 53.08 mL/min; ETHANOL BLOOD MEDICAL 132 mg/dL (0); GLUCOSE RANDOM 360 mg/dL (70-99); MAGNESIUM 1.2 mg/dL (1.8-2.4); POTASSIUM,K 2.8 mmol/L (3.5-5.1); PROTEIN TOTAL,TP 7.6 g/dL (6.4-8.2); SODIUM,NA 134 mmol/L (136-145)
[2023-11-05 19:02] LABS: LACTIC ACID 4.6 mmol/L (0.4-2.0)
[2023-11-05 19:09] LABS: C-REACTIVE PROTEIN < 0.50 ng/dL (<=0.50); ESTIMATED GFR 48 mL/min (>=60)
[2023-11-05] MEDS: Potassium Chloride 10 MEQ Tab.ER PO ONE (20:28)
[2023-11-05] MEDS: Magnesium Sulfate/Water 4 GM in Premix Bag 1 BAG IV ONE (20:28)
[2023-11-05] MEDS: Sodium Chloride 0.9% 2,000 ML IV ONE (20:28)
[2023-11-05] MEDS: Potassium Chloride 20 MEQ in Premix Bag 1 BAG IV ONE (20:28)
[2023-11-05] MEDS: Levofloxacin/Dextrose 5%-Water 500 MG in Premix Bag 1 BAG IV ONE (20:37)
[2023-11-05] MEDS ORDERED: Acetaminophen 325 MG Tab PO PRN (21:55)
[2023-11-05] MEDS ORDERED: Ondansetron 4 MG/2 ML SDV IVPUSH PRN (21:55)
[2023-11-05] MEDS: Sodium Chloride 0.9% 1,000 ML IV SCH (22:55)
[2023-11-05] MEDS: Heparin Sodium 5,000 Units/ML Vial SUBCUT SCH (23:03)
[2023-11-06] MEDS: hydrOXYzine HCl 25 MG Tab PO ONE (00:47)
[2023-11-06 06:37] LABS: BASOPHILS PERCENT AUTO 0.5 % (0.0-1.0); EOSINOPHILS PERCENT AUTO 2.6 % (1.0-3.0); HEMATOCRIT 39.5 % (40.0-54.0); LYMPHOCYTES PERCENT AUTO 16.1 % (20.5-50.1); MEAN CORPUSCULAR HEMOGLOBIN 34.9 pg (27.0-34.0); MEAN CORPUSCULAR HGB CONC 35.4 g/dL (33.0-35.0); MEAN CORPUSCULAR VOLUME 98.5 fL (80-100); MONOCYTES PERCENT AUTO 14.2 % (2-8); NEUTROPHILS PERCENT AUTO 66.6 % (42.2-75.2); PLATELET COUNT,PLT 117 10^3/uL (150-450); RED BLOOD CELL COUNT 4.01 10^6/uL (4.6-6.2); WHITE BLOOD CELL COUNT,WBC 7.6 10^3/uL (5.0-10.0)
[2023-11-06] MEDS ORDERED: 50% Dextrose in Water 50 ML Syringe IVPUSH PRN (08:55)
[2023-11-06] MEDS ORDERED: Glucagon,Human Recombinant 1 MG Vial IM PRN (08:55)
[2023-11-06 09:16] LABS: ANION GAP 18.8 mEq/L (7-13); CALCIUM 8.2 mg/dL (8.5-10.1); CREATININE 0.94 mg/dL (0.70-1.30); POTASSIUM,K 3.8 mmol/L (3.5-5.1)
[2023-11-06] MEDS: Insulin Lispro 100 Units/ML 3 ML Vial SUBCUT SCH ×2 (12:19→18:10)
[2023-11-06] MEDS ORDERED: Albuterol 6.7 GM Inhaler INH PRN (13:37)
[2023-11-06] MEDS: Lisinopril 5 MG Tab PO SCH (14:02)
[2023-11-06] MEDS: atorvaSTATin 20 MG Tab PO SCH (14:02)
[2023-11-06] MEDS: OLANZapine 5 MG Tab PO SCH (20:47)
[2023-11-06] MEDS: Insulin Glarg,Human.Rec.Analog 100 Unit/ML 10 ML Vial SUBCUT SCH (20:48)
[2023-11-06] MEDS: Clotrimazole 1% Crm 30 GM Tube TOP SCH (20:51)
[2023-11-06] MEDS: oxyCODONE 5 MG Tab PO PRN (21:03)
[2023-11-06 23:03] LABS: APPEARANCE,URINE CLEAR (CLEAR); BILIRUBIN,URINE MODERATE (NEGATIVE); COLOR,URINE DARK YELLOW (YELLOW); GLUCOSE,URINE 500 (NEGATIVE); KETONES,URINE 40 (NEGATIVE); LEUKOCYTE ESTERASE,URINE NEGATIVE (NEGATIVE); NITRITE,URINE NEGATIVE (NEGATIVE); OCCULT BLOOD,URINE NEGATIVE (NEGATIVE); PH,URINE 6.5 (5.0-9.0); PROTEIN,URINE NEGATIVE (NEGATIVE)
[2023-11-06 23:05] LABS: AMPHETAMINES,URINE POSITIVE (NEGATIVE); BARBITURATES,URINE NEGATIVE (NEGATIVE); BENZODIAZEPINE,URINE NEGATIVE (NEGATIVE); MDMA (ECSTASY), URINE NEGATIVE (NEGATIVE); METHADONE,URINE NEGATIVE (NEGATIVE); METHAMPHETAMINES,URINE POSITIVE (NEGATIVE); OPIATES,URINE NEGATIVE (NEGATIVE); OXYCODONE,URINE NEGATIVE (NEGATIVE); PHENCYCLIDINE,URINE NEGATIVE (NEGATIVE); TCA,URINE NEGATIVE (NEGATIVE)
[2023-11-07] MEDS: DULoxetine 30 MG Cap PO SCH (08:38)
[2023-11-07] MEDS: cefTRIAXone 2 GM Vial IV SCH (09:46)
[2023-11-07 09:53] LABS: BASOPHILS PERCENT AUTO 1.2 % (0.0-1.0); EOSINOPHILS PERCENT AUTO 6.8 % (1.0-3.0); HEMATOCRIT 38.6 % (40.0-54.0); HEMOGLOBIN 13.6 g/dL (14.0-18.0); LYMPHOCYTES PERCENT AUTO 14.9 % (20.5-50.1); MEAN CORPUSCULAR HEMOGLOBIN 35.1 pg (27.0-34.0); MEAN CORPUSCULAR HGB CONC 35.2 g/dL (33.0-35.0); MEAN CORPUSCULAR VOLUME 99.5 fL (80-100); MONOCYTES PERCENT AUTO 11.9 % (2-8); NEUTROPHILS PERCENT AUTO 65.2 % (42.2-75.2); PLATELET COUNT,PLT 102 10^3/uL (150-450); RED BLOOD CELL COUNT 3.88 10^6/uL (4.6-6.2)
[2023-11-07 10:07] LABS: ANION GAP 14.7 mEq/L (7-13); CALCIUM 8.5 mg/dL (8.5-10.1); CREATININE 0.7 mg/dL (0.70-1.30); EST CRCL DRUG DOSING (CG) 128.91 mL/min; POTASSIUM,K 3.7 mmol/L (3.5-5.1)
[2023-11-07] MEDS: hydrOXYzine HCl 25 MG Tab PO PRN (20:11)
[2023-11-08 07:15] LABS: CREATININE 0.72 mg/dL (0.70-1.30); EST CRCL DRUG DOSING (CG) 125.33 mL/min
[2023-11-10 06:50] LABS: CREATININE 0.83 mg/dL (0.70-1.30); EST CRCL DRUG DOSING (CG) 108.72 mL/min; VANCOMYCIN RANDOM 15.5 ug/mL (No Normal Range)
[2023-11-10] MEDS: Sodium Chloride 0.9% 250 ML ONE (10:22)
== END 2023-11-10 12:20 | disposition home or self-care (01) | DRG 683 ==
LOC: DL.ED 17:36 → DL.MS 20:30 → UNDOADMIN 20:30
PROVIDERS: ADMIT Internal Medicine; ATTEND Internal Medicine
DX: N17.9 Acute kidney failure, unspecified (principal); E87.20 Acidosis, unspecified; R78.81 Bacteremia; R07.9 Chest pain, unspecified; I10 Essential (primary) hypertension; E86.0 Dehydration; F15.10 Other stimulant abuse, uncomplicated; B35.9 Dermatophytosis, unspecified; E83.42 Hypomagnesemia; E87.6 Hypokalemia; F41.9 Anxiety disorder, unspecified; M19.90 Unspecified osteoarthritis, unspecified site; E11.65 Type 2 diabetes mellitus with hyperglycemia; H54.7 Unspecified visual loss; I95.9 Hypotension, unspecified; G89.29 Other chronic pain; M54.9 Dorsalgia, unspecified; F31.9 Bipolar disorder, unspecified; F10.90 Alcohol use, unspecified, uncomplicated; B95.7 Other staphylococcus as the cause of diseases classified elsewhere; F17.210 Nicotine dependence, cigarettes, uncomplicated; Z88.0 Allergy status to penicillin; Z88.1 Allergy status to other antibiotic agents; Z88.8 Allergy status to other drugs, medicaments and biological substances; Z79.4 Long term (current) use of insulin; Z79.899 Other long term (current) drug therapy; Z96.649 Presence of unspecified artificial hip joint
CPT/HCPCS: 36415; 71045; 80048; 80053; 80202; 80305-QW; 80307; 81003; 82565; 82947; 83605; 83735; 83880; 84145; 84484; 85025; 85610; 85730; 86140; 87040; 87045; 87046; 87077; 87186; 87338; 87493; 87899; 93005; 93010; 96361; 96374; 96375; 99223; 99232; 99239; 99285; 99285-25; A9270-GY; J0696; J1644; J1815-GY; J1956; J3370; J3475; J3480; J3490; J7030; J7050

== ENCOUNTER 2023-12-08 22:49 | Inpatient (IN) | payer MEDICAID ==
[2023-12-08 23:01] LABS: BASOPHILS PERCENT AUTO 1.1 % (0.0-1.0); EOSINOPHILS PERCENT AUTO 0.9 % (1.0-3.0); HEMATOCRIT 40.4 % (40.0-54.0); HEMOGLOBIN 14.9 g/dL (14.0-18.0); LYMPHOCYTES PERCENT AUTO 36.1 % (20.5-50.1); MEAN CORPUSCULAR HEMOGLOBIN 35.5 pg (27.0-34.0); MEAN CORPUSCULAR HGB CONC 36.9 g/dL (33.0-35.0); MEAN CORPUSCULAR VOLUME 96.2 fL (80-100); MONOCYTES PERCENT AUTO 15.6 % (2-8); NEUTROPHILS PERCENT AUTO 46.3 % (42.2-75.2); PLATELET COUNT,PLT 93 10^3/uL (150-450); WHITE BLOOD CELL COUNT,WBC 5.4 10^3/uL (5.0-10.0)
[2023-12-08] MEDS: Albuterol/Ipratropium 3.0-0.5 MG/3 ML Neb Soln NEB ONE (23:05)
[2023-12-08] MEDS: Sodium Chloride 0.9% 2,000 ML IV ONE (23:05)
[2023-12-08 23:29] LABS: A/G RATIO 0.8; ALBUMIN 3.6 g/dL (3.4-5.0); ANION GAP 23.3 mEq/L (7-13); BILIRUBIN TOTAL 1.7 mg/dL (0.2-1.0); BUN/CREATININE RATIO 5.3 (No establ ref range); CALCIUM 9.1 mg/dL (8.5-10.1); CREATININE 0.94 mg/dL (0.70-1.30); POTASSIUM,K 3.3 mmol/L (3.5-5.1); PROTEIN TOTAL,TP 7.9 g/dL (6.4-8.2)
[2023-12-08 23:31] LABS: LACTIC ACID 7.7 mmol/L (0.4-2.0)
[2023-12-08] MEDS: Iopamidol 612 MG/ML 100 ML Bottle IVPUSH ONE (23:41)
[2023-12-08 23:53] LABS: PROTHROMBIN TIME 10.6 SEC (9.0-12.0)
[2023-12-09] MEDS: Magnesium Sulfate/Water Premix 4 GM in Premix Bag 1 BAG IV ONE (00:10)
[2023-12-09 00:27] LABS: APPEARANCE,URINE CLEAR (CLEAR); BILIRUBIN,URINE NEGATIVE (NEGATIVE); COLOR,URINE YELLOW (YELLOW); GLUCOSE,URINE >=1000 (NEGATIVE); KETONES,URINE 15 (NEGATIVE); LEUKOCYTE ESTERASE,URINE NEGATIVE (NEGATIVE); NITRITE,URINE NEGATIVE (NEGATIVE); OCCULT BLOOD,URINE NEGATIVE (NEGATIVE); PROTEIN,URINE NEGATIVE (NEGATIVE)
[2023-12-09 00:31] LABS: AMPHETAMINES,URINE NEGATIVE (NEGATIVE); BARBITURATES,URINE NEGATIVE (NEGATIVE); BENZODIAZEPINE,URINE NEGATIVE (NEGATIVE); MDMA (ECSTASY), URINE NEGATIVE (NEGATIVE); METHADONE,URINE NEGATIVE (NEGATIVE); METHAMPHETAMINES,URINE NEGATIVE (NEGATIVE); OPIATES,URINE NEGATIVE (NEGATIVE); OXYCODONE,URINE NEGATIVE (NEGATIVE); PHENCYCLIDINE,URINE NEGATIVE (NEGATIVE); TCA,URINE NEGATIVE (NEGATIVE)
[2023-12-09] MEDS: Thiamine 100 MG in Sodium Chloride 0.9% 100 ML IV ONE (00:34)
[2023-12-09] MEDS: Potassium Chloride 10 MEQ Tab.ER PO ONE ×2 (00:34→07:58)
[2023-12-09] MEDS ORDERED: Bisacodyl 5 MG Tab PO PRN (02:45)
[2023-12-09] MEDS ORDERED: Acetaminophen 325 MG Tab PO PRN (02:45)
[2023-12-09] MEDS ORDERED: Docusate Sodium 100 MG Cap PO PRN (02:45)
[2023-12-09] MEDS ORDERED: Glucagon,Human Recombinant 1 MG Vial IM PRN (02:52)
[2023-12-09] MEDS ORDERED: 50% Dextrose in Water 50 ML Syringe IVPUSH PRN (02:52)
[2023-12-09] MEDS ORDERED: chlordiazePOXIDE 25 MG Cap PO PRN (02:58)
[2023-12-09] MEDS: Sodium Chloride 0.9% 1,000 ML IV SCH (03:18)
[2023-12-09] MEDS: Nicotine 21 MG/24 Hr Patch TRDERM SCH (03:24)
[2023-12-09] MEDS: Multivitamin Tab PO ONE (03:28)
[2023-12-09] MEDS: LORazepam 1 MG Tab PO PRN (03:29)
[2023-12-09] MEDS: ClonazePAM 0.5 MG Tab PO SCH (03:29)
[2023-12-09] MEDS: Thiamine 100 MG Tab PO ONE (03:29)
[2023-12-09] MEDS ORDERED: Ondansetron 4 MG/2 ML SDV IVPUSH PRN (05:00)
[2023-12-09] MEDS ORDERED: Albuterol/Ipratropium 3.0-0.5 MG/3 ML Neb Soln NEB PRN (05:00)
[2023-12-09] MEDS: Pantoprazole 40 MG Tab.CR PO SCH (06:03)
[2023-12-09 06:27] LABS: EOSINOPHILS PERCENT AUTO 2.2 % (1.0-3.0); HEMATOCRIT 35.3 % (40.0-54.0); HEMOGLOBIN 12.8 g/dL (14.0-18.0); LYMPHOCYTES PERCENT AUTO 35.3 % (20.5-50.1); MEAN CORPUSCULAR HEMOGLOBIN 35.5 pg (27.0-34.0); MEAN CORPUSCULAR HGB CONC 36.3 g/dL (33.0-35.0); MEAN CORPUSCULAR VOLUME 97.8 fL (80-100); MONOCYTES PERCENT AUTO 17.9 % (2-8); NEUTROPHILS PERCENT AUTO 43.6 % (42.2-75.2); PLATELET COUNT,PLT 67 10^3/uL (150-450); RED BLOOD CELL COUNT 3.61 10^6/uL (4.6-6.2); WHITE BLOOD CELL COUNT,WBC 4.1 10^3/uL (5.0-10.0)
[2023-12-09 06:51] LABS: ALBUMIN 3.2 g/dL (3.4-5.0); BILIRUBIN TOTAL 1.5 mg/dL (0.2-1.0); BUN/CREATININE RATIO 4.4 (No establ ref range); CREATININE 0.68 mg/dL (0.70-1.30); EST CRCL DRUG DOSING (CG) 132.7 mL/min; MAGNESIUM 1.5 mg/dL (1.8-2.4); PROTEIN TOTAL,TP 6.8 g/dL (6.4-8.2)
[2023-12-09 06:52] LABS: A/G RATIO 0.89
[2023-12-09 07:38] LABS: MAGNESIUM 1.4 mg/dL (1.8-2.4)
[2023-12-09] MEDS: Potassium Chloride 20 MEQ in Premix Bag 1 BAG IV ONE (07:56)
[2023-12-09] MEDS: Magnesium Sulfate/Water Premix 2 GM in Premix Bag 1 BAG IV ONE (07:57)
[2023-12-09] MEDS: predniSONE 20 MG Tab PO SCH (07:58)
[2023-12-09] MEDS: Insulin Lispro 100 Units/ML 3 ML Vial SUBCUT SCH (08:08)
[2023-12-09] MEDS ORDERED: Enoxaparin 40 MG/0.4 ML Syringe SUBCUT SCH (09:00)
[2023-12-09] MEDS: FLU (Flulaval Triv) 24-25(6MOS UP)/PF 45 MCG/0.5 ML Syringe IM ONE (09:59)
[2023-12-09 13:19] LABS: ANION GAP 19.8 mEq/L (7-13); BLOOD UREA NITROGEN,BUN 5 mg/dL (7-18); CALCIUM 8.1 mg/dL (8.5-10.1); CARBON DIOXIDE,CO2 23 mmol/L (21-32); CHLORIDE,CL 95 mmol/L (98-107); CREATININE 0.75 mg/dL (0.70-1.30); EST CRCL DRUG DOSING (CG) 120.31 mL/min; GLUCOSE RANDOM 349 mg/dL (70-99); MAGNESIUM 1.3 mg/dL (1.8-2.4); POTASSIUM,K 3.8 mmol/L (3.5-5.1); SODIUM,NA 134 mmol/L (136-145)
[2023-12-09 13:22] LABS: ESTIMATED GFR 109 mL/min (>=60); ETHANOL BLOOD MEDICAL < 3 mg/dL (0)
[2023-12-09 13:27] LABS: LACTIC ACID 2.2 mmol/L (0.4-2.0)
[2023-12-09] MEDS: Melatonin 3 MG Tab PO PRN (19:28)
[2023-12-09] MEDS: Insulin Glarg,Human.Rec.Analog 100 Unit/ML 10 ML Vial SUBCUT SCH (21:33)
[2023-12-09] MEDS: Check Patch TRDERM SCH (21:36)
[2023-12-10 07:00] LABS: ANION GAP 15.9 mEq/L (7-13); CALCIUM 8.3 mg/dL (8.5-10.1); CREATININE 0.64 mg/dL (0.70-1.30); EST CRCL DRUG DOSING (CG) 140.99 mL/min; MAGNESIUM 1.1 mg/dL (1.8-2.4); POTASSIUM,K 2.9 mmol/L (3.5-5.1)
[2023-12-10] MEDS: Potassium Chloride 10 MEQ Tab.ER PO ONE (08:32)
[2023-12-10] MEDS: DULoxetine 30 MG Cap PO SCH (08:32)
[2023-12-10] MEDS: atorvaSTATin 20 MG Tab PO SCH (08:32)
[2023-12-10] MEDS: Magnesium Sulfate/Water Premix 4 GM in Premix Bag 1 BAG IV ONE (08:33)
[2023-12-10] MEDS: Potassium Chloride 20 MEQ in Premix Bag 1 BAG IV ONE (08:33)
[2023-12-10] MEDS: Lisinopril 5 MG Tab PO SCH (08:34)
[2023-12-10] MEDS: predniSONE 20 MG Tab PO SCH (08:36)
[2023-12-10 12:20] LABS: MAGNESIUM 2.1 mg/dL (1.8-2.4); POTASSIUM,K 3.7 mmol/L (3.5-5.1)
[2023-12-10] MEDS: FLU (Flulaval Triv) 24-25(6MOS UP)/PF 45 MCG/0.5 ML Syringe IM ONE (12:53)
[2023-12-10] MEDS ORDERED: OLANZapine 5 MG Tab PO SCH (21:00)
== END 2023-12-10 13:15 | disposition home or self-care (01) | DRG 638 ==
LOC: DL.ED 22:49 → DL.MS 12-09 01:52
PROVIDERS: ADMIT Internal Medicine; ATTEND Internal Medicine
PROC: 3E0234Z Introduction of Serum, Toxoid and Vaccine into Muscle, Percutaneous Approach (ICD-10-PCS; principal; 2023-12-10)
DX: E11.65 Type 2 diabetes mellitus with hyperglycemia (principal); J44.1 Chronic obstructive pulmonary disease with (acute) exacerbation; F17.210 Nicotine dependence, cigarettes, uncomplicated; I10 Essential (primary) hypertension; E78.5 Hyperlipidemia, unspecified; F19.10 Other psychoactive substance abuse, uncomplicated; H54.7 Unspecified visual loss; K52.9 Noninfective gastroenteritis and colitis, unspecified; M19.90 Unspecified osteoarthritis, unspecified site; M54.9 Dorsalgia, unspecified; G89.29 Other chronic pain; F41.9 Anxiety disorder, unspecified; F31.9 Bipolar disorder, unspecified; E87.6 Hypokalemia; E83.42 Hypomagnesemia; E86.0 Dehydration; F10.920 Alcohol use, unspecified with intoxication, uncomplicated; K70.30 Alcoholic cirrhosis of liver without ascites; Z96.649 Presence of unspecified artificial hip joint; Z23 Encounter for immunization; Z88.0 Allergy status to penicillin; Z88.1 Allergy status to other antibiotic agents; Z79.4 Long term (current) use of insulin; Z79.51 Long term (current) use of inhaled steroids; Z79.899 Other long term (current) drug therapy; Z79.2 Long term (current) use of antibiotics
CPT/HCPCS: 36415; 71045; 74177; 80048; 80053; 80305-QW; 80307; 81003; 82947; 83605; 83690; 83735; 83880; 84132; 84484; 85025; 85610; 87804; 90686; 93005; 93010; 96361; 96365; 96368; 99223; 99239; 99285; 99285-25; A9270-GY; G0008; J1815-GY; J3411; J3475; J3480; J3490; J7030; J7512; J7620-GY; Q9967; U0002

== ENCOUNTER 2023-12-15 21:10 | Emergency (ER) | payer MEDICAID | END 2023-12-15 21:43 | disposition home or self-care (01) | LOC: DL.ED 21:10 | DX: R05.9 Cough, unspecified (principal); I10 Essential (primary) hypertension; J44.9 Chronic obstructive pulmonary disease, unspecified; E11.9 Type 2 diabetes mellitus without complications; F17.210 Nicotine dependence, cigarettes, uncomplicated; Z79.899 Other long term (current) drug therapy; Z88.0 Allergy status to penicillin; Z88.1 Allergy status to other antibiotic agents; Z88.6 Allergy status to analgesic agent; Z79.84 Long term (current) use of oral hypoglycemic drugs | CPT/HCPCS: 99283 ==

== ENCOUNTER 2023-12-30 10:09 | Emergency (ER) | payer MEDICAID ==
[2023-12-30 10:27] LABS: BASOPHILS PERCENT AUTO 1.3 % (0.0-1.0); HEMATOCRIT 40.9 % (40.0-54.0); HEMOGLOBIN 14.6 g/dL (14.0-18.0); LYMPHOCYTES PERCENT AUTO 25.4 % (20.5-50.1); MEAN CORPUSCULAR HEMOGLOBIN 36.5 pg (27.0-34.0); MEAN CORPUSCULAR HGB CONC 35.7 g/dL (33.0-35.0); MEAN CORPUSCULAR VOLUME 102.3 fL (80-100); NEUTROPHILS PERCENT AUTO 59.3 % (42.2-75.2); PLATELET COUNT,PLT 219 10^3/uL (150-450); WHITE BLOOD CELL COUNT,WBC 5.6 10^3/uL (5.0-10.0)
[2023-12-30 10:46] LABS: B-TYPE NATRIURETIC PEPTIDE,BNP 33 pg/ml (0-100)
[2023-12-30 10:51] LABS: LACTIC ACID 5.5 mmol/L (0.4-2.0)
[2023-12-30] MEDS: MVI, Adult with Vitamin K 10 ML, Folic Acid 1 MG, Thiamine 100 MG in Lactated Ringers 1... IV ONE (10:52)
[2023-12-30] MEDS: Albuterol/Ipratropium 3.0-0.5 MG/3 ML Neb Soln NEB ONE ×2 (10:52→10:53)
[2023-12-30 10:53] LABS: A/G RATIO 0.76; ALANINE AMINOTRANSFERASE,ALT 80 U/L (16-63); ALBUMIN 3.1 g/dL (3.4-5.0); ALKALINE PHOSPHATASE 189 U/L (46-116); ANION GAP 15.4 mEq/L (7-13); ASPARTATE AMNIOTRANSFERASE,AST 98 U/L (15-37); BILIRUBIN TOTAL 0.9 mg/dL (0.2-1.0); BLOOD UREA NITROGEN,BUN 8 mg/dL (7-18); BUN/CREATININE RATIO 7.3 (No establ ref range); CALCIUM 8.7 mg/dL (8.5-10.1); CARBON DIOXIDE,CO2 27 mmol/L (21-32); CHLORIDE,CL 99 mmol/L (98-107); EST CRCL DRUG DOSING (CG) 76.86 mL/min; ESTIMATED GFR 81 mL/min (>=60); GLUCOSE RANDOM 449 mg/dL (70-99); POTASSIUM,K 3.4 mmol/L (3.5-5.1); PROTEIN TOTAL,TP 7.2 g/dL (6.4-8.2); SODIUM,NA 138 mmol/L (136-145)
[2023-12-30 10:54] LABS: C-REACTIVE PROTEIN < 0.05 ng/dL (<=0.50)
[2023-12-30] MEDS ORDERED: Glucagon,Human Recombinant 1 MG Vial IM PRN (11:03)
[2023-12-30] MEDS ORDERED: 50% Dextrose in Water 50 ML Syringe IVPUSH PRN (11:03)
[2023-12-30 11:31] LABS: INR 1.1 (0.9-1.2); PTT,PARTIAL THROMBOPLSTIN TIME 24.2 SEC (22.0-34.0)
[2023-12-30] MEDS: Lactated Ringers 1,000 ML IV ONE (12:01)
[2023-12-30 12:31] LABS: APPEARANCE,URINE CLEAR (CLEAR); BILIRUBIN,URINE NEGATIVE (NEGATIVE); COLOR,URINE YELLOW (YELLOW); GLUCOSE,URINE 500 (NEGATIVE); KETONES,URINE NEGATIVE (NEGATIVE); LEUKOCYTE ESTERASE,URINE NEGATIVE (NEGATIVE); NITRITE,URINE NEGATIVE (NEGATIVE); OCCULT BLOOD,URINE NEGATIVE (NEGATIVE); PROTEIN,URINE NEGATIVE (NEGATIVE); UROBILINOGEN,URINE 0.2 mg/dL (0.2-1.0)
[2023-12-30 12:33] LABS: AMPHETAMINES,URINE NEGATIVE (NEGATIVE); BARBITURATES,URINE NEGATIVE (NEGATIVE); BENZODIAZEPINE,URINE NEGATIVE (NEGATIVE); MDMA (ECSTASY), URINE NEGATIVE (NEGATIVE); METHADONE,URINE NEGATIVE (NEGATIVE); METHAMPHETAMINES,URINE NEGATIVE (NEGATIVE); OPIATES,URINE NEGATIVE (NEGATIVE); PHENCYCLIDINE,URINE NEGATIVE (NEGATIVE); TCA,URINE NEGATIVE (NEGATIVE)
[2023-12-30 12:34] LABS: OXYCODONE,URINE NEGATIVE (NEGATIVE)
[2023-12-30] MEDS: Potassium Chloride 10 MEQ Tab.ER PO ONE (13:52)
[2023-12-30 14:00] LABS: POTASSIUM,K 3.1 mmol/L (3.5-5.1)
[2023-12-30 14:02] LABS: MAGNESIUM 0.8 mg/dL (1.8-2.4)
[2023-12-30] MEDS ORDERED: Flumazenil 0.1 MG/ML 5 ML MDV IVPUSH PRN (14:17)
[2023-12-30] MEDS: LORazepam 2 MG/ML SDV IVPUSH ONE (14:33)
[2023-12-30] MEDS: Magnesium Sulfate/Water Premix 2 GM in Premix Bag 1 BAG IV ONE (14:33)
== END 2023-12-30 15:30 | disposition home or self-care (01) ==
LOC: DL.ED 10:09
DX: E11.65 Type 2 diabetes mellitus with hyperglycemia (principal); J44.1 Chronic obstructive pulmonary disease with (acute) exacerbation; E86.0 Dehydration; E83.42 Hypomagnesemia; E87.6 Hypokalemia; I10 Essential (primary) hypertension; E11.9 Type 2 diabetes mellitus without complications; F17.210 Nicotine dependence, cigarettes, uncomplicated; Z96.649 Presence of unspecified artificial hip joint; Z88.0 Allergy status to penicillin; Z88.1 Allergy status to other antibiotic agents; Z88.6 Allergy status to analgesic agent; Z79.51 Long term (current) use of inhaled steroids; Z79.52 Long term (current) use of systemic steroids; Z79.899 Other long term (current) drug therapy; Z79.4 Long term (current) use of insulin
CPT/HCPCS: 36415; 71045; 80053; 80305; 80307; 81003; 82009; 82947; 83605; 83735; 83880; 84132; 84484; 85025; 85610; 85730; 86140; 87428; 96361; 96365; 96367; 96375; 99285; A9270; J1815; J2060; J3411; J3475; J7120; J3490; J7620-GY

== ENCOUNTER 2024-03-23 21:57 | Emergency (ER) | payer MEDICAID | END 2024-03-24 00:20 | disposition left against medical advice (07) | LOC: DL.ED 21:57 | DX: F10.229 Alcohol dependence with intoxication, unspecified (principal); I10 Essential (primary) hypertension; J44.9 Chronic obstructive pulmonary disease, unspecified; E11.9 Type 2 diabetes mellitus without complications; F17.210 Nicotine dependence, cigarettes, uncomplicated; Z88.0 Allergy status to penicillin; Z88.1 Allergy status to other antibiotic agents; Z88.5 Allergy status to narcotic agent; Z79.899 Other long term (current) drug therapy; Z79.4 Long term (current) use of insulin; Y90.9 Presence of alcohol in blood, level not specified | CPT/HCPCS: 99284 ==

== ENCOUNTER 2024-04-04 16:27 | Emergency (ER) | payer MEDICAID | END 2024-04-04 18:14 | disposition left against medical advice (07) | LOC: DL.ED 16:27 | DX: Z53.21 Procedure and treatment not carried out due to patient leaving prior to being seen by health care provider (principal) ==

== ENCOUNTER 2024-05-16 11:50 | Emergency (ER) | payer MEDICAID ==
[2024-05-16] MEDS: Oxymetazoline 0.05% Nasal Spray 30 ML Bottle NAS ONE (12:19)
[2024-05-16] MEDS: Ketorolac 30 MG/ML SDV IM ONE (12:20)
[2024-05-16] MEDS: Take Home: Ondansetron 4 MG Tab.DIS, 5 Tab Pack PO ONE (12:24)
== END 2024-05-16 12:29 | disposition home or self-care (01) ==
LOC: DL.ED 11:50
DX: B34.9 Viral infection, unspecified (principal); I10 Essential (primary) hypertension; J44.9 Chronic obstructive pulmonary disease, unspecified; E11.9 Type 2 diabetes mellitus without complications; Z79.84 Long term (current) use of oral hypoglycemic drugs; Z79.899 Other long term (current) drug therapy; Z88.8 Allergy status to other drugs, medicaments and biological substances; Z88.0 Allergy status to penicillin; Z88.1 Allergy status to other antibiotic agents
CPT/HCPCS: 96372; 99283; A9270; J1885; Q0162; 99282

== ENCOUNTER 2024-05-21 00:20 | Emergency (ER) | payer MEDICAID ==
[2024-05-21] MEDS: Pseudoephedrine 30 MG Tab PO ONE (00:26)
[2024-05-21 00:51] LABS: BASOPHILS PERCENT AUTO 1.2 % (0.0-1.0); EOSINOPHILS PERCENT AUTO 2.4 % (1.0-3.0); HEMATOCRIT 37.8 % (40.0-54.0); HEMOGLOBIN 13.5 g/dL (14.0-18.0); LYMPHOCYTES PERCENT AUTO 29.3 % (20.5-50.1); MEAN CORPUSCULAR HEMOGLOBIN 34.3 pg (27.0-34.0); MEAN CORPUSCULAR HGB CONC 35.7 g/dL (33.0-35.0); MEAN CORPUSCULAR VOLUME 95.9 fL (80-100); MONOCYTES PERCENT AUTO 16.8 % (2-8); NEUTROPHILS PERCENT AUTO 50.3 % (42.2-75.2); PLATELET COUNT,PLT 130 10^3/uL (150-450); RED BLOOD CELL COUNT 3.94 10^6/uL (4.6-6.2); WHITE BLOOD CELL COUNT,WBC 5.9 10^3/uL (5.0-10.0)
[2024-05-21 01:10] LABS: ALANINE AMINOTRANSFERASE,ALT 121 U/L (16-63); ALBUMIN 2.8 g/dL (3.4-5.0); ALKALINE PHOSPHATASE 249 U/L (46-116); ANION GAP 17.1 mEq/L (7-13); ASPARTATE AMNIOTRANSFERASE,AST 136 U/L (15-37); BILIRUBIN TOTAL 1.3 mg/dL (0.2-1.0); BLOOD UREA NITROGEN,BUN 9 mg/dL (7-18); BUN/CREATININE RATIO 8.4 (No establ ref range); CALCIUM 8.9 mg/dL (8.5-10.1); CARBON DIOXIDE,CO2 27 mmol/L (21-32); CHLORIDE,CL 101 mmol/L (98-107); CREATININE 1.07 mg/dL (0.70-1.30); EST CRCL DRUG DOSING (CG) 83.39 mL/min; POTASSIUM,K 3.1 mmol/L (3.5-5.1); SODIUM,NA 142 mmol/L (136-145)
[2024-05-21] MEDS ORDERED: Glucagon,Human Recombinant 1 MG Vial IM PRN (01:15)
[2024-05-21] MEDS ORDERED: 50% Dextrose in Water 50 ML Syringe IVPUSH PRN (01:15)
[2024-05-21 01:16] LABS: A/G RATIO 0.54; ESTIMATED GFR 84 mL/min (>=60); ETHANOL BLOOD MEDICAL 319 mg/dL (0); GLUCOSE RANDOM 414 mg/dL (70-99); LIPASE > 250 U/L (16-77)
[2024-05-21] MEDS: Iopamidol 612 MG/ML 100 ML Bottle IVPUSH ONE (01:19)
[2024-05-21] MEDS: Thiamine 200 MG/2 ML MDV IVPUSH ONE (01:58)
[2024-05-21] MEDS: Sodium Chloride 0.9% 1,000 ML IV ONE ×2 (02:01→03:45)
[2024-05-21] MEDS: Insulin Regular, Human 100 Units/ML 10 ML Vial IV ONE (02:02)
[2024-05-21] MEDS: LORazepam 2 MG/ML SDV IVPUSH ONE (03:46)
[2024-05-21] MEDS: Morphine 4 MG/ML Syringe IVPUSH ONE (03:46)
== END 2024-05-21 04:10 ==
LOC: DL.ED 00:20
DX: K70.30 Alcoholic cirrhosis of liver without ascites (principal); K85.90 Acute pancreatitis without necrosis or infection, unspecified; I10 Essential (primary) hypertension; E87.6 Hypokalemia; E11.65 Type 2 diabetes mellitus with hyperglycemia; F10.920 Alcohol use, unspecified with intoxication, uncomplicated; J44.9 Chronic obstructive pulmonary disease, unspecified; M19.90 Unspecified osteoarthritis, unspecified site; Z88.8 Allergy status to other drugs, medicaments and biological substances; Z88.0 Allergy status to penicillin; Z88.1 Allergy status to other antibiotic agents; Z79.899 Other long term (current) drug therapy
CPT/HCPCS: 36415; 71045; 74177; 80053; 80307; 82947; 83690; 83735; 84484; 85025; 93005; 93010; 96361; 96374; 96375; 99285; 99285-25; A9270-GY; J2060; J2270; J3411; J7030; Q9967

== ENCOUNTER 2024-07-08 13:09 | Emergency (ER) | payer MEDICAID ==
[2024-07-08] MEDS: Albuterol/Ipratropium 3.0-0.5 MG/3 ML Neb Soln NEB ONE (14:19)
[2024-07-08 14:27] LABS: BASOPHILS PERCENT AUTO 0.9 % (0.0-1.0); EOSINOPHILS PERCENT AUTO 0.9 % (1.0-3.0); HEMATOCRIT 41.1 % (40.0-54.0); HEMOGLOBIN 14.6 g/dL (14.0-18.0); LYMPHOCYTES PERCENT AUTO 19.6 % (20.5-50.1); MEAN CORPUSCULAR HEMOGLOBIN 35.3 pg (27.0-34.0); MEAN CORPUSCULAR HGB CONC 35.5 g/dL (33.0-35.0); MEAN CORPUSCULAR VOLUME 99.3 fL (80-100); MONOCYTES PERCENT AUTO 9.7 % (2-8); NEUTROPHILS PERCENT AUTO 68.9 % (42.2-75.2); PLATELET COUNT,PLT 145 10^3/uL (150-450); RED BLOOD CELL COUNT 4.14 10^6/uL (4.6-6.2); WHITE BLOOD CELL COUNT,WBC 6.4 10^3/uL (5.0-10.0)
[2024-07-08 14:49] LABS: A/G RATIO 0.7; ALBUMIN 3.4 g/dL (3.4-5.0); ANION GAP 19.5 mEq/L (7-13); BILIRUBIN TOTAL 1.6 mg/dL (0.2-1.0); BUN/CREATININE RATIO 8.9 (No establ ref range); CALCIUM 9.3 mg/dL (8.5-10.1); CREATININE 1.01 mg/dL (0.70-1.30); EST CRCL DRUG DOSING (CG) 88.34 mL/min; MAGNESIUM 1.2 mg/dL (1.8-2.4); POTASSIUM,K 3.5 mmol/L (3.5-5.1); PROTEIN TOTAL,TP 8.6 g/dL (6.4-8.2)
== END 2024-07-08 15:45 | disposition home or self-care (01) ==
LOC: DL.ED 13:09
DX: J44.1 Chronic obstructive pulmonary disease with (acute) exacerbation (principal); I10 Essential (primary) hypertension; E11.9 Type 2 diabetes mellitus without complications; F17.210 Nicotine dependence, cigarettes, uncomplicated; Z88.0 Allergy status to penicillin; Z88.1 Allergy status to other antibiotic agents; Z88.8 Allergy status to other drugs, medicaments and biological substances; Z79.899 Other long term (current) drug therapy; Z79.51 Long term (current) use of inhaled steroids; Z86.16 Personal history of COVID-19
CPT/HCPCS: 36415; 71045; 80053; 83735; 84484; 85025; 87428; 99284; 99285; J7620; A9270-GY

== ENCOUNTER 2024-08-17 11:49 | Emergency (ER) | payer MEDICAID ==
[2024-08-17] MEDS: MVI, Adult with Vitamin K 10 ML, Folic Acid 1 MG, Thiamine 100 MG in Lactated Ringers 1... IV ONE (12:18)
[2024-08-17] MEDS: Sodium Chloride 0.9% 10 ML Syringe FLUSH PRN (12:21)
[2024-08-17 12:33] LABS: HEMATOCRIT 38.2 % (40.0-54.0); HEMOGLOBIN 14.3 g/dL (14.0-18.0); MEAN CORPUSCULAR HEMOGLOBIN 36.4 pg (27.0-34.0); MEAN CORPUSCULAR HGB CONC 37.4 g/dL (33.0-35.0); MEAN CORPUSCULAR VOLUME 97.2 fL (80-100); PLATELET COUNT,PLT 45 10^3/uL (150-450); RED BLOOD CELL COUNT 3.93 10^6/uL (4.6-6.2); WHITE BLOOD CELL COUNT,WBC 4.2 10^3/uL (5.0-10.0)
[2024-08-17 12:41] LABS: ALANINE AMINOTRANSFERASE,ALT 119 U/L (16-63); ALBUMIN 2.9 g/dL (3.4-5.0); ALKALINE PHOSPHATASE 209 U/L (46-116); ANION GAP 19.6 mEq/L (7-13); ASPARTATE AMNIOTRANSFERASE,AST 289 U/L (15-37); BILIRUBIN TOTAL 2.3 mg/dL (0.2-1.0); BLOOD UREA NITROGEN,BUN 6 mg/dL (7-18); CALCIUM 8.6 mg/dL (8.5-10.1); CARBON DIOXIDE,CO2 25 mmol/L (21-32); CHLORIDE,CL 93 mmol/L (98-107); EST CRCL DRUG DOSING (CG) 86.41 mL/min; GLUCOSE RANDOM 392 mg/dL (70-99); POTASSIUM,K 2.6 mmol/L (3.5-5.1); PROTEIN TOTAL,TP 7.5 g/dL (6.4-8.2); SODIUM,NA 135 mmol/L (136-145)
[2024-08-17 12:46] LABS: A/G RATIO 0.63; ESTIMATED GFR 91 mL/min (>=60)
[2024-08-17 12:47] LABS: C-REACTIVE PROTEIN < 0.50 ng/dL (<=0.50); ETHANOL BLOOD MEDICAL 348 mg/dL (0); LIPASE > 250 U/L (16-77); MAGNESIUM 0.8 mg/dL (1.8-2.4)
[2024-08-17] MEDS: Iopamidol 612 MG/ML 100 ML Bottle IVPUSH ONE (12:51)
[2024-08-17 12:53] LABS: BASOPHILS PERCENT AUTO 2.9 % (0.0-1.0); EOSINOPHILS PERCENT AUTO 1.2 % (1.0-3.0); LYMPHOCYTES PERCENT AUTO 26.7 % (20.5-50.1); MONOCYTES PERCENT AUTO 23.1 % (2-8); NEUTROPHILS PERCENT AUTO 46.1 % (42.2-75.2)
[2024-08-17 12:54] LABS: APPEARANCE,URINE CLEAR (CLEAR); BILIRUBIN,URINE NEGATIVE (NEGATIVE); COLOR,URINE YELLOW (YELLOW); GLUCOSE,URINE 500 (NEGATIVE); KETONES,URINE NEGATIVE (NEGATIVE); LEUKOCYTE ESTERASE,URINE NEGATIVE (NEGATIVE); NITRITE,URINE NEGATIVE (NEGATIVE); OCCULT BLOOD,URINE TRACE-INTACT (NEGATIVE); PROTEIN,URINE TRACE (NEGATIVE); UROBILINOGEN,URINE 0.2 mg/dL (0.2-1.0)
[2024-08-17 12:56] LABS: AMPHETAMINES,URINE NEGATIVE (NEGATIVE); BARBITURATES,URINE NEGATIVE (NEGATIVE); BENZODIAZEPINE,URINE NEGATIVE (NEGATIVE); MDMA (ECSTASY), URINE NEGATIVE (NEGATIVE); METHADONE,URINE NEGATIVE (NEGATIVE); METHAMPHETAMINES,URINE NEGATIVE (NEGATIVE); OPIATES,URINE NEGATIVE (NEGATIVE); OXYCODONE,URINE NEGATIVE (NEGATIVE); PHENCYCLIDINE,URINE NEGATIVE (NEGATIVE); TCA,URINE NEGATIVE (NEGATIVE)
[2024-08-17] MEDS: Magnesium Sulfate 2 GM/50 mL 2 GM in Premix Bag 1 BAG IV ONE ×2 (12:57→15:00)
[2024-08-17] MEDS: Potassium Chloride 10 MEQ Tab.ER PO ONE (12:57)
[2024-08-17 13:03] LABS: BACTERIA,URINE RARE /HPF (0-FEW/HPF); EPITHELIAL CELLS,URINE RARE /HPF (NOT SEEN); WBC,URINE 0-5 /HPF (0-5/HPF)
[2024-08-17 13:21] LABS: BASOPHILS PERCENT MAN 1; LYMPHOCYTES PERCENT MAN 28 % (20-50); MONOCYTES PERCENT MAN 20 % (2-8); SEG NEUTROPHILS PERCENT MAN 51 % (42-75)
== END 2024-08-17 15:30 ==
LOC: DL.ED 11:49
DX: K70.30 Alcoholic cirrhosis of liver without ascites (principal); F10.929 Alcohol use, unspecified with intoxication, unspecified; E83.42 Hypomagnesemia; I10 Essential (primary) hypertension; J44.9 Chronic obstructive pulmonary disease, unspecified; E11.9 Type 2 diabetes mellitus without complications; Y90.8 Blood alcohol level of 240 mg/100 ml or more; Z88.0 Allergy status to penicillin; Z88.1 Allergy status to other antibiotic agents; Z88.8 Allergy status to other drugs, medicaments and biological substances; Z79.4 Long term (current) use of insulin; Z79.51 Long term (current) use of inhaled steroids; Z79.899 Other long term (current) drug therapy
CPT/HCPCS: 36415; 74177; 80053; 80305; 80307; 81001; 83690; 83735; 84484; 85025; 86140; 93005; 96365; 96366; 96367; 99285; A9270; J3411; J3475; J7120; Q9967; J3490

== ENCOUNTER 2024-12-06 21:55 | Emergency (ER) | payer MEDICAID ==
[2024-12-06] MEDS ORDERED: Sodium Chloride 0.9% 10 ML Syringe FLUSH PRN (22:05)
[2024-12-06 22:14] LABS: BASOPHILS PERCENT AUTO 1.1 % (0.0-1.0); EOSINOPHILS PERCENT AUTO 0.1 % (1.0-3.0); LYMPHOCYTES PERCENT AUTO 6.9 % (20.5-50.1); MONOCYTES PERCENT AUTO 18.3 % (2-8); NEUTROPHILS PERCENT AUTO 73.6 % (42.2-75.2); PLATELET COUNT,PLT 116 10^3/uL (150-450); RED BLOOD CELL COUNT 4.13 10^6/uL (4.6-6.2); WHITE BLOOD CELL COUNT,WBC 9.1 10^3/uL (5.0-10.0)
[2024-12-06] MEDS: Ondansetron 4 MG/2 ML SDV IVPUSH ONE (22:36)
[2024-12-06 22:40] LABS: A/G RATIO 0.7; ALANINE AMINOTRANSFERASE,ALT 88 U/L (16-63); ASPARTATE AMNIOTRANSFERASE,AST 95 U/L (15-37); BILIRUBIN TOTAL 5.5 mg/dL (0.2-1.0); BLOOD UREA NITROGEN,BUN 12 mg/dL (7-18); CARBON DIOXIDE,CO2 17 mmol/L (21-32); CHLORIDE,CL 92 mmol/L (98-107); CREATININE 1.36 mg/dL (0.70-1.30); GLUCOSE RANDOM 349 mg/dL (70-99); POTASSIUM,K 4.3 mmol/L (3.5-5.1); PROTEIN TOTAL,TP 8.2 g/dL (6.4-8.2); SODIUM,NA 135 mmol/L (136-145)
[2024-12-06 22:47] LABS: ESTIMATED GFR 63 mL/min (>=60)
[2024-12-06 22:49] LABS: ETHANOL BLOOD MEDICAL < 3 mg/dL (0)
[2024-12-06 23:17] LABS: APPEARANCE,URINE SLIGHTLY CLOUDY (CLEAR); GLUCOSE,URINE 500 (NEGATIVE); OCCULT BLOOD,URINE MODERATE (NEGATIVE)
[2024-12-06 23:26] LABS: AMPHETAMINES,URINE NEGATIVE (NEGATIVE); BARBITURATES,URINE NEGATIVE (NEGATIVE); MDMA (ECSTASY), URINE NEGATIVE (NEGATIVE); METHAMPHETAMINES,URINE POSITIVE (NEGATIVE); OPIATES,URINE NEGATIVE (NEGATIVE); OXYCODONE,URINE NEGATIVE (NEGATIVE); PHENCYCLIDINE,URINE NEGATIVE (NEGATIVE); SQUAMOUS EPITHELIAL CELLS,UR RARE /HPF (NOT SEEN); TCA,URINE NEGATIVE (NEGATIVE)
[2024-12-06] MEDS: Magnesium Sulfate 2 GM/50 mL 2 GM in Premix Bag 1 BAG IV ONE (23:41)
[2024-12-07] MEDS: Calcium Chloride 10% 1 GM/10 ML Syringe IVPUSH ONE (00:32)
[2024-12-07] MEDS: Nitrofurantoin Monohydrate/Macrocrystalline 100 MG Cap PO ONE (01:34)
[2024-12-07] MEDS: Take Home: Nitrofurantoin Monohydrate/Macrocrystalline 100 MG, 6 Cap Pack PO ONE (01:34)
[2024-12-09 10:43] LABS: IONIZED CA@PH7.4 1.14 mmol/L (1.09-1.30); IONIZED CALCIUM 1.13 mmol/L (1.09-1.30)
== END 2024-12-07 01:15 | disposition home or self-care (01) ==
LOC: DL.ED 21:58
DX: E86.0 Dehydration (principal); E83.42 Hypomagnesemia; F15.10 Other stimulant abuse, uncomplicated; K70.30 Alcoholic cirrhosis of liver without ascites; I10 Essential (primary) hypertension; J44.9 Chronic obstructive pulmonary disease, unspecified; E11.9 Type 2 diabetes mellitus without complications; Z86.16 Personal history of COVID-19; Z88.0 Allergy status to penicillin; Z88.1 Allergy status to other antibiotic agents; Z88.8 Allergy status to other drugs, medicaments and biological substances; Z79.899 Other long term (current) drug therapy
CPT/HCPCS: 36415; 70450; 71250; 80053; 80305; 80307; 81001; 82330; 83735; 84484; 85025; 96365; 96375; 99285; A9270; J2405; J3475; J7030; J3490